=== PATIENT | female | born 1960 | race African-American/Black ===

== ENCOUNTER 2022-02-28 11:30 | Inpatient (IN) | payer SELFPAY ==
[2022-02-28 12:29] LABS: Hemoglobin 13.3 g/dL (12.0-16.0); Mean Corpuscular HGB CONC 33.4 g/dL (32.0-36.0); Mean Corpuscular Hemoglobin 34.2 pg (27.0-31.0); Platelet Count 142 thou/uL (130-400); RBC Distribution Width 13.1 % (11.5-14.5); Red Blood Cell (RBC) Count 3.88 mill/uL (4.20-5.40); White Blood Cell (WBC) Count 28.9 thou/uL (4.8-10.8)
[2022-02-28 12:32] LABS: ALT (SGPT) 55 U/L (8-55); AST (SGOT) 67 U/L (5-34); Albumin 2.4 g/dL (3.5-5.0); Alkaline Phosphatase 130 U/L (40-110); Anion Gap 13 mmol/L (10-20); BUN (Urea Nitrogen) 17 mg/dL (9.8-20.1); Calc. Creatinine Clearance 0 mL/min (70-130); Carbon Dioxide 21 mmol/L (22-29); Chloride 100 mmol/L (98-107); Glucose 127 mg/dL (70-105); Potassium 4.5 mmol/L (3.5-5.1); Protein, Total 7.4 g/dL (6.0-8.3)
[2022-02-28 12:34] LABS: Sodium 129 mmol/L (136-145)
[2022-02-28] MEDS ORDERED: Cefepime 2 GM VIAL ONE (12:40)
[2022-02-28 12:47] LABS: Band 6 % (5-11); Lymphocytes 4 % (21-51); MDiff Complete? YES; Macrocytosis SLIGHT = 6-15 cells (100X) (0-5/hpf); Monocytes 7 % (0-10); Neutrophil 83 % (42-75); Nucleated RBC 1 % (0); Platelet Morphology Comment Appears Adequate; Polychromasia SLIGHT = 2-3 cells (100X) (0-2/hpf); Toxic Granulation SLIGHT
[2022-02-28] MEDS ORDERED: Iopamidol-370 76% 500 ML 1 ML ONE (13:11)
[2022-02-28] MEDS ORDERED: Fentanyl 100 MCG/2 ML VIAL ONE (15:03)
[2022-02-28 15:15] LABS: Bacteria/HPF None Seen HPF (None Seen); Bilirubin Negative (Negative); Blood, Urine Trace (Negative); Clarity Clear (Clear); Glucose, Urine (Dipstick) Normal (Negative); Ketone, Urine Negative (Negative); Leukocyte Negative Leu/uL (Negative); Nitrite Negative (Negative); Protein, Urine (Dipstick) Negative (Neg-Trace); Squamous Epithelial 0-3 HPF (0-3); Urobilinogen 12 mg/dL (Less than 2); WBC/HPF 0-3 HPF (0-3)
[2022-02-28 15:32] LABS: Lactic Acid 3.3 mmol/L (0.5-2.2)
[2022-02-28 15:33] LABS: Specific Gravity, Urine 1.047 (1.002-1.036)
[2022-02-28 15:45] LABS: SARS-CoV-2 NAA Rapid Test Not Detected (NotDetected)
[2022-02-28] MEDS ORDERED: Ondansetron PF 4 MG/2 ML Vial IVP PRN (18:50)
[2022-02-28] MEDS ORDERED: Senokot S 8.6-50 MG TAB PO PRN (18:50)
[2022-02-28] MEDS ORDERED: Ondansetron ODT 4 MG TAB PO PRN (18:50)
[2022-02-28] MEDS ORDERED: Sodium Chloride 0.9% 1,000 ML IV SCH (19:00)
[2022-02-28] MEDS ORDERED: Albuterol Sulfate 2.5 mg/3 ml Neb NEB PRN (19:06)
[2022-02-28] MEDS: Morphine 2 MG/ML VIAL SLOW IVP PRN (19:37)
[2022-02-28] MEDS ORDERED: Vancomycin HCl 1.5 GM in Sodium Chloride 0.9% 250 ML 300 ML IVPB SCH (20:30)
[2022-02-28] MEDS: Sodium Chloride 0.9% 1,000 ML IV SCH (20:41)
[2022-02-28] MEDS ORDERED: tiZANidine HCl 4 MG TAB PO SCH (23:30)
[2022-02-28] MEDS: Vancomycin 1 GM in Premix Bag 1 BAG IVPB SCH (23:39)
[2022-03-01] MEDS: Cefepime 2 GM in Sodium Chloride 0.9% 100 ML IVPB SCH ×2 (01:59→12:53)
[2022-03-01] MEDS: Morphine 2 MG/ML VIAL SLOW IVP PRN ×5 (03:01→23:15)
[2022-03-01 05:31] LABS: ALT (SGPT) 45 U/L (8-55); AST (SGOT) 58 U/L (5-34); Alkaline Phosphatase 110 U/L (40-110); Anion Gap 9 mmol/L (10-20); BUN (Urea Nitrogen) 15 mg/dL (9.8-20.1); Bilirubin, Total 1.7 mg/dL (0.2-1.2); Calc. Creatinine Clearance 98 mL/min (70-130); Calcium 7.3 mg/dL (7.8-10.44); Carbon Dioxide 20 mmol/L (22-29); Chloride 105 mmol/L (98-107); Globulin 4.1 g/dL (2.4-3.5); Glucose 106 mg/dL (70-105); Potassium 4.2 mmol/L (3.5-5.1); Protein, Total 6.1 g/dL (6.0-8.3); Sodium 130 mmol/L (136-145)
[2022-03-01] MEDS: Sodium Chloride 0.9% 1,000 ML IV SCH (08:30)
[2022-03-01] MEDS ORDERED: Vancomycin 1 GM in Premix Bag 1 BAG IVPB SCH (09:00)
[2022-03-01] MEDS: Vancomycin 1 GM in Premix Bag 1 BAG IVPB SCH ×2 (11:19→23:16)
[2022-03-01] MEDS ORDERED: Spironolactone 100 MG TAB PO SCH (17:30)
[2022-03-01] MEDS ORDERED: Furosemide 40 MG/4 ML VIAL SLOW IVP SCH (17:30)
[2022-03-01] MEDS: HYDROcodone/Acetaminophen 5/325 mg Tablet PO PRN ×2 (17:46→23:14)
[2022-03-01 23:37] LABS: Vancomycin, Trough 8.5 ug/mL
[2022-03-02] MEDS: Cefepime 2 GM in Sodium Chloride 0.9% 100 ML IVPB SCH ×2 (01:14→12:57)
[2022-03-02] MEDS: Morphine 2 MG/ML VIAL SLOW IVP PRN ×4 (04:07→21:16)
[2022-03-02] MEDS: HYDROcodone/Acetaminophen 5/325 mg Tablet PO PRN ×5 (04:08→23:06)
[2022-03-02 05:09] LABS: INR-International Normal Ratio 2.3; Prothrombin Time 25.3 sec (12.0-14.7)
[2022-03-02 05:27] LABS: ALT (SGPT) 50 U/L (8-55); AST (SGOT) 65 U/L (5-34); Alkaline Phosphatase 116 U/L (40-110); Anion Gap 11 mmol/L (10-20); BUN (Urea Nitrogen) 15 mg/dL (9.8-20.1); Bilirubin, Total 1.5 mg/dL (0.2-1.2); Calc. Creatinine Clearance 91 mL/min (70-130); Calcium 7.5 mg/dL (7.8-10.44); Carbon Dioxide 18 mmol/L (22-29); Chloride 105 mmol/L (98-107); Globulin 4.7 g/dL (2.4-3.5); Glucose 169 mg/dL (70-105); Protein, Total 6.7 g/dL (6.0-8.3); Sodium 130 mmol/L (136-145)
[2022-03-02] MEDS ORDERED: Vancomycin 1 GM in Premix Bag 1 BAG IVPB SCH (08:00)
[2022-03-02 08:43] LABS: #Eosinphils 0.2 thou/uL (0.0-0.7); #Lymphocytes 2.3 thou/uL (1.20-3.40); #Monocytes 2.5 thou/uL (0.11-0.59); #Neutrophils 22.4 thou/uL (1.40-6.50); %Basophils 0.1 % (0.0-1.0); %Eosinophils 0.8 % (0.0-10.0); %Lymphocytes 8.3 % (21.0-51.0); %Neutrophils 81.9 % (42.0-75.0); Hemoglobin 11.3 g/dL (12.0-16.0); Mean Corpuscular Hemoglobin 34.1 pg (27.0-31.0); Mean Platelet Volume 8.6 fL (7.4-10.4); Platelet Count 135 thou/uL (130-400); Red Blood Cell (RBC) Count 3.32 mill/uL (4.20-5.40); White Blood Cell (WBC) Count 27.3 thou/uL (4.8-10.8)
[2022-03-02] MEDS: Spironolactone 100 MG TAB PO SCH (09:39)
[2022-03-02] MEDS: Furosemide 40 MG/4 ML VIAL SLOW IVP SCH (09:39)
[2022-03-02] MEDS: ceFAZolin (BATCH) 2 GM in Premix Bag 1 BAG IVPB SCH (21:17)
[2022-03-03 04:38] LABS: #Basophils 0.1 thou/uL (0.0-0.2); #Eosinphils 0.2 thou/uL (0.0-0.7); #Lymphocytes 2.3 thou/uL (1.20-3.40); #Monocytes 2.2 thou/uL (0.11-0.59); #Neutrophils 17.9 thou/uL (1.40-6.50); %Basophils 0.3 % (0.0-1.0); %Eosinophils 0.7 % (0.0-10.0); %Lymphocytes 10.2 % (21.0-51.0); %Monocytes 9.7 % (0.0-10.0); %Neutrophils 79.2 % (42.0-75.0); Mean Corpuscular HGB CONC 34.3 g/dL (32.0-36.0); Mean Corpuscular Hemoglobin 35.3 pg (27.0-31.0); Mean Platelet Volume 8.5 fL (7.4-10.4); Platelet Count 123 thou/uL (130-400); RBC Distribution Width 13.1 % (11.5-14.5); Red Blood Cell (RBC) Count 3.12 mill/uL (4.20-5.40); White Blood Cell (WBC) Count 22.6 thou/uL (4.8-10.8)
[2022-03-03] MEDS: Morphine 2 MG/ML VIAL SLOW IVP PRN ×3 (04:44→21:24)
[2022-03-03 05:03] LABS: ALT (SGPT) 51 U/L (8-55); AST (SGOT) 64 U/L (5-34); Albumin 2.1 g/dL (3.5-5.0); Alkaline Phosphatase 108 U/L (40-110); Anion Gap 9 mmol/L (10-20); BUN (Urea Nitrogen) 11 mg/dL (9.8-20.1); Bilirubin, Total 1.4 mg/dL (0.2-1.2); Calc. Creatinine Clearance 99 mL/min (70-130); Calcium 7.7 mg/dL (7.8-10.44); Carbon Dioxide 21 mmol/L (22-29); Chloride 103 mmol/L (98-107); Globulin 4.9 g/dL (2.4-3.5); Glucose 109 mg/dL (70-105); Potassium 4.1 mmol/L (3.5-5.1); Sodium 129 mmol/L (136-145)
[2022-03-03] MEDS: ceFAZolin (BATCH) 2 GM in Premix Bag 1 BAG IVPB SCH ×3 (06:02→21:23)
[2022-03-03] MEDS: Furosemide 40 MG/4 ML VIAL SLOW IVP SCH (09:00)
[2022-03-03] MEDS: Spironolactone 100 MG TAB PO SCH (09:00)
[2022-03-03] MEDS ORDERED: Metoprolol Tartrate 25 MG TAB PO SCH (17:00)
[2022-03-03] MEDS: HYDROcodone/Acetaminophen 5/325 mg Tablet PO PRN (19:33)
[2022-03-04] MEDS: HYDROcodone/Acetaminophen 5/325 mg Tablet PO PRN ×2 (00:40→19:59)
[2022-03-04] MEDS: Morphine 2 MG/ML VIAL SLOW IVP PRN ×4 (04:04→21:17)
[2022-03-04] MEDS: ceFAZolin (BATCH) 2 GM in Premix Bag 1 BAG IVPB SCH ×3 (05:23→22:31)
[2022-03-04] MEDS: Metoprolol Tartrate 25 MG TAB PO SCH ×2 (08:56→21:17)
[2022-03-04] MEDS: Furosemide 40 MG/4 ML VIAL SLOW IVP SCH (08:56)
[2022-03-04] MEDS: Spironolactone 100 MG TAB PO SCH (08:56)
[2022-03-04 11:03] LABS: #Basophils 0.1 thou/uL (0.0-0.2); #Eosinphils 0.2 thou/uL (0.0-0.7); #Monocytes 1.5 thou/uL (0.11-0.59); #Neutrophils 15.9 thou/uL (1.40-6.50); %Basophils 0.4 % (0.0-1.0); %Lymphocytes 10.3 % (21.0-51.0); %Monocytes 7.4 % (0.0-10.0); %Neutrophils 80.9 % (42.0-75.0); Hemoglobin 11.5 g/dL (12.0-16.0); Mean Corpuscular HGB CONC 32.8 g/dL (32.0-36.0); Mean Corpuscular Hemoglobin 34.8 pg (27.0-31.0); Mean Platelet Volume 8.5 fL (7.4-10.4); Platelet Count 183 thou/uL (130-400); RBC Distribution Width 13.7 % (11.5-14.5); Red Blood Cell (RBC) Count 3.29 mill/uL (4.20-5.40); White Blood Cell (WBC) Count 19.7 thou/uL (4.8-10.8)
[2022-03-04 11:11] LABS: INR-International Normal Ratio 1.5; Prothrombin Time 17.8 sec (12.0-14.7)
[2022-03-04 11:23] LABS: ALT (SGPT) 47 U/L (8-55); AST (SGOT) 81 U/L (5-34); Albumin 2.2 g/dL (3.5-5.0); Alkaline Phosphatase 119 U/L (40-110); Anion Gap 11 mmol/L (10-20); BUN (Urea Nitrogen) 12 mg/dL (9.8-20.1); Bilirubin, Total 1.5 mg/dL (0.2-1.2); Calc. Creatinine Clearance 78 mL/min (70-130); Calcium 8.1 mg/dL (7.8-10.44); Carbon Dioxide 19 mmol/L (22-29); Chloride 101 mmol/L (98-107); Globulin 5.9 g/dL (2.4-3.5); Glucose 143 mg/dL (70-105); Potassium 4.2 mmol/L (3.5-5.1); Protein, Total 8.1 g/dL (6.0-8.3); Sodium 127 mmol/L (136-145)
[2022-03-04] MEDS ORDERED: Sodium Bicarbonate 2.5 MEQ/5 ML VIAL ONE (13:53)
[2022-03-04] MEDS ORDERED: Lidocaine 1% PF 5 ML VIAL ONE (13:53)
[2022-03-04 15:41] LABS: RBC Count-Automated (BF) 19 /cu.mm; WBC/Nucleated-Auto (BF) 517 /cu.mm
[2022-03-04 15:42] LABS: Pleural Fluid, LDH 41 U/L (Not Available); Pleural Fluid, Protein Less than 1.0 g/dL
[2022-03-04 16:13] LABS: BF Color Yellow; Body Fluid Source Ascites Body Fluid; Clarity Clear (Clear); Tube # EDTA
[2022-03-04 16:14] LABS: BF Segmented Neutrophils 37 %; Cell Count Non Hematic 41 %; Lymphocytes 22 %
[2022-03-04 23:36] LABS: HCV log10 5.722 (.); Hep C PCR-Quant 527000 IU/mL (.)
[2022-03-05] MEDS: Morphine 2 MG/ML VIAL SLOW IVP PRN ×2 (02:27→22:01)
[2022-03-05 04:15] LABS: #Eosinphils 0.2 thou/uL (0.0-0.7); #Monocytes 1.7 thou/uL (0.11-0.59); #Neutrophils 12.2 thou/uL (1.40-6.50); %Basophils 0.2 % (0.0-1.0); %Eosinophils 1.1 % (0.0-10.0); %Lymphocytes 12.3 % (21.0-51.0); %Monocytes 10.8 % (0.0-10.0); %Neutrophils 75.6 % (42.0-75.0); Hemoglobin 10.1 g/dL (12.0-16.0); Mean Corpuscular HGB CONC 34.5 g/dL (32.0-36.0); Mean Corpuscular Hemoglobin 35.8 pg (27.0-31.0); Platelet Count 137 thou/uL (130-400); RBC Distribution Width 13.9 % (11.5-14.5); Red Blood Cell (RBC) Count 2.84 mill/uL (4.20-5.40); White Blood Cell (WBC) Count 16.1 thou/uL (4.8-10.8)
[2022-03-05 04:37] LABS: ALT (SGPT) 38 U/L (8-55); AST (SGOT) 73 U/L (5-34); Alkaline Phosphatase 117 U/L (40-110); Anion Gap 7 mmol/L (10-20); BUN (Urea Nitrogen) 13 mg/dL (9.8-20.1); Bilirubin, Total 1.1 mg/dL (0.2-1.2); Calc. Creatinine Clearance 85 mL/min (70-130); Calcium 7.9 mg/dL (7.8-10.44); Carbon Dioxide 24 mmol/L (22-29); Chloride 104 mmol/L (98-107); Globulin 5.2 g/dL (2.4-3.5); Glucose 108 mg/dL (70-105); Iron 24 ug/dL (50-170); Iron Binding Capacity, Total 193 mcg/dL (265-497); Potassium 4.3 mmol/L (3.5-5.1); Protein, Total 7.2 g/dL (6.0-8.3); Sodium 131 mmol/L (136-145)
[2022-03-05 04:53] LABS: Ferritin 272.61 ng/mL (10-291)
[2022-03-05 05:08] LABS: HBCM Index 0.12 S/CO (0-0.79); HBSAg Index 0.22 S/CO (0-0.99); Hep A IgM AB Non-Reactive (NonReactive); Hep A IgM S/CO 0.31 S/CO (0-0.79); Hep B Surf Ag Non-Reactive S/CO (NonReactive); Hepatitis B Core IgM Abs Non-Reactive (NonReactive)
[2022-03-05] MEDS: HYDROcodone/Acetaminophen 5/325 mg Tablet PO PRN ×4 (05:56→19:44)
[2022-03-05] MEDS: ceFAZolin (BATCH) 2 GM in Premix Bag 1 BAG IVPB SCH ×3 (06:00→22:00)
[2022-03-05 06:25] LABS: Hep C IgG Ab Reflex HepC Qnt (NonReactive)
[2022-03-05 06:27] LABS: Hep C Index 11.77 S/CO (0-0.79)
[2022-03-05] MEDS: Spironolactone 100 MG TAB PO SCH (09:53)
[2022-03-05] MEDS: Metoprolol Tartrate 25 MG TAB PO SCH ×2 (09:53→19:44)
[2022-03-05] MEDS: Furosemide 40 MG/4 ML VIAL SLOW IVP SCH (09:53)
[2022-03-06] MEDS: HYDROcodone/Acetaminophen 5/325 mg Tablet PO PRN ×3 (03:29→22:10)
[2022-03-06] MEDS ORDERED: fentaNYL Citrate/PF 100 MCG/2 ML SYRINGE ONE (10:24)
[2022-03-06] MEDS ORDERED: PHENYLEPHRINE-NS 100 MCG/ML 10 ML SYRINGE ONE ×2 (10:26→11:00)
[2022-03-06] MEDS ORDERED: Pantoprazole 40 MG VIAL IVP SCH (11:46)
[2022-03-06] MEDS: Spironolactone 100 MG TAB PO SCH (11:51)
[2022-03-06] MEDS: Furosemide 40 MG TAB PO SCH (11:52)
[2022-03-06] MEDS: Metoprolol Tartrate 25 MG TAB PO SCH ×2 (11:52→20:10)
[2022-03-06] MEDS: Morphine 2 MG/ML VIAL SLOW IVP PRN ×2 (11:52→19:15)
[2022-03-06] MEDS: ceFAZolin (BATCH) 2 GM in Premix Bag 1 BAG IVPB SCH ×3 (11:53→20:09)
[2022-03-06] MEDS ORDERED: Magnevist 469MG/ML 20 ML VIAL ONE (14:31)
[2022-03-06] MEDS: Pantoprazole 40 MG VIAL IVP SCH (20:11)
[2022-03-07] MEDS: Morphine 2 MG/ML VIAL SLOW IVP PRN ×3 (01:43→15:17)
[2022-03-07] MEDS: HYDROcodone/Acetaminophen 5/325 mg Tablet PO PRN ×2 (05:26→20:43)
[2022-03-07] MEDS: ceFAZolin (BATCH) 2 GM in Premix Bag 1 BAG IVPB SCH ×3 (05:27→20:49)
[2022-03-07] MEDS: Furosemide 40 MG TAB PO SCH (09:28)
[2022-03-07] MEDS: Metoprolol Tartrate 25 MG TAB PO SCH ×2 (09:29→21:50)
[2022-03-07] MEDS: Spironolactone 100 MG TAB PO SCH (09:29)
[2022-03-07] MEDS: Pantoprazole 40 MG VIAL IVP SCH ×2 (09:29→20:43)
[2022-03-07 11:53] LABS: SARS-CoV-2 PCR by NAA Not Detected (NotDetected)
[2022-03-08] MEDS: ceFAZolin (BATCH) 2 GM in Premix Bag 1 BAG IVPB SCH ×3 (04:45→20:44)
[2022-03-08 04:49] LABS: #Basophils 0.1 thou/uL (0.0-0.2); #Eosinphils 0.2 thou/uL (0.0-0.7); #Lymphocytes 1.3 thou/uL (1.20-3.40); #Monocytes 1.1 thou/uL (0.11-0.59); #Neutrophils 5.6 thou/uL (1.40-6.50); %Eosinophils 1.9 % (0.0-10.0); %Lymphocytes 15.5 % (21.0-51.0); %Monocytes 13.8 % (0.0-10.0); %Neutrophils 67.8 % (42.0-75.0); Hemoglobin 9.3 g/dL (12.0-16.0); Mean Corpuscular HGB CONC 32.8 g/dL (32.0-36.0); Mean Corpuscular Hemoglobin 34.7 pg (27.0-31.0); Mean Platelet Volume 8.2 fL (7.4-10.4); Platelet Count 140 thou/uL (130-400); RBC Distribution Width 14.5 % (11.5-14.5); Red Blood Cell (RBC) Count 2.67 mill/uL (4.20-5.40); White Blood Cell (WBC) Count 8.2 thou/uL (4.8-10.8)
[2022-03-08 05:03] LABS: Anion Gap 8 mmol/L (10-20); BUN (Urea Nitrogen) 8 mg/dL (9.8-20.1); Calc. Creatinine Clearance 85 mL/min (70-130); Calcium 7.7 mg/dL (7.8-10.44); Carbon Dioxide 22 mmol/L (22-29); Chloride 103 mmol/L (98-107); Glucose 124 mg/dL (70-105); Sodium 129 mmol/L (136-145)
[2022-03-08] MEDS: HYDROcodone/Acetaminophen 5/325 mg Tablet PO PRN ×2 (05:30→20:50)
[2022-03-08] MEDS: Furosemide 40 MG TAB PO SCH (08:53)
[2022-03-08] MEDS: Spironolactone 100 MG TAB PO SCH (08:53)
[2022-03-08] MEDS: Pantoprazole 40 MG VIAL IVP SCH ×2 (08:53→20:44)
[2022-03-08 16:38] LABS: ANA Symphony (Qualitative) Equivocal: See Note (Negative); ANA Symphony (Quantitative) 0.9 Ratio (< 0.7 Negative); EliA Vaculitis New Method **** NEW METHOD ****; Mitochondrial Ab 2.2 U/mL (<4 Negative)
[2022-03-09] MEDS: ceFAZolin (BATCH) 2 GM in Premix Bag 1 BAG IVPB SCH ×3 (04:48→19:52)
[2022-03-09] MEDS: HYDROcodone/Acetaminophen 5/325 mg Tablet PO PRN ×3 (05:01→19:51)
[2022-03-09] MEDS: Spironolactone 100 MG TAB PO SCH (08:32)
[2022-03-09] MEDS: Furosemide 40 MG TAB PO SCH (08:32)
[2022-03-09] MEDS: Pantoprazole 40 MG VIAL IVP SCH ×2 (08:38→20:33)
[2022-03-09] MEDS ORDERED: Temazepam 15 MG CAP PO PRN (11:32)
[2022-03-09 14:09] LABS: Smooth Muscle Total ABS 24 Units (0-19)
[2022-03-10] MEDS: ceFAZolin (BATCH) 2 GM in Premix Bag 1 BAG IVPB SCH ×3 (04:11→20:17)
[2022-03-10] MEDS: HYDROcodone/Acetaminophen 5/325 mg Tablet PO PRN ×3 (04:20→20:14)
[2022-03-10 04:48] LABS: #Eosinphils 0.2 thou/uL (0.0-0.7); #Lymphocytes 1.5 thou/uL (1.20-3.40); #Monocytes 0.8 thou/uL (0.11-0.59); #Neutrophils 4.4 thou/uL (1.40-6.50); %Basophils 0.7 % (0.0-1.0); %Eosinophils 2.7 % (0.0-10.0); %Lymphocytes 21.4 % (21.0-51.0); %Monocytes 11.4 % (0.0-10.0); %Neutrophils 63.9 % (42.0-75.0); Mean Corpuscular HGB CONC 32.9 g/dL (32.0-36.0); Mean Corpuscular Hemoglobin 34.9 pg (27.0-31.0); Mean Platelet Volume 8.2 fL (7.4-10.4); Platelet Count 132 thou/uL (130-400); RBC Distribution Width 14.3 % (11.5-14.5); Red Blood Cell (RBC) Count 2.57 mill/uL (4.20-5.40); White Blood Cell (WBC) Count 6.9 thou/uL (4.8-10.8)
[2022-03-10 05:18] LABS: Anion Gap 9 mmol/L (10-20); BUN (Urea Nitrogen) 8 mg/dL (9.8-20.1); Calc. Creatinine Clearance 85 mL/min (70-130); Calcium 7.8 mg/dL (7.8-10.44); Carbon Dioxide 20 mmol/L (22-29); Chloride 106 mmol/L (98-107); Glucose 80 mg/dL (70-105); Potassium 4.3 mmol/L (3.5-5.1); Sodium 131 mmol/L (136-145)
[2022-03-10] MEDS: Spironolactone 100 MG TAB PO SCH (07:57)
[2022-03-10] MEDS: Furosemide 40 MG TAB PO SCH (07:57)
[2022-03-10] MEDS: Pantoprazole 40 MG VIAL IVP SCH ×2 (09:52→20:18)
[2022-03-11] MEDS: ceFAZolin (BATCH) 2 GM in Premix Bag 1 BAG IVPB SCH ×2 (03:55→15:06)
[2022-03-11] MEDS: HYDROcodone/Acetaminophen 5/325 mg Tablet PO PRN (04:03)
[2022-03-11] MEDS: Spironolactone 100 MG TAB PO SCH (09:47)
[2022-03-11] MEDS: Pantoprazole 40 MG VIAL IVP SCH (09:47)
[2022-03-11] MEDS: Furosemide 40 MG TAB PO SCH (09:47)
[2022-03-11 14:18] LABS: Alpha-1-Antitrypsin 247 mg/dL (101-187)
[2022-03-11 15:09] VITALS: BMI 24.2
[2022-03-11 16:12] VITALS: BP 116/68; TEMP 98.7
== END 2022-03-11 18:10 | disposition home or self-care (01) | DRG 432 ==
LOC: ERS 11:30 → 2NO 17:45
PROVIDERS: ADMIT Internal Medicine; ATTEND Internal Medicine
PROC: 3E03329 Introduction of Other Anti-infective into Peripheral Vein, Percutaneous Approach (ICD-10-PCS; principal; 2022-02-28)
PROC: 0W9G3ZZ Drainage of Peritoneal Cavity, Percutaneous Approach (ICD-10-PCS; 2022-03-04)
PROC: 06L38CZ Occlusion of Esophageal Vein with Extraluminal Device, Via Natural or Artificial Opening Endoscopic (ICD-10-PCS; 2022-03-06)
PROC: 0DB98ZX Excision of Duodenum, Via Natural or Artificial Opening Endoscopic, Diagnostic (ICD-10-PCS; 2022-03-06)
PROC: 0DB78ZX Excision of Stomach, Pylorus, Via Natural or Artificial Opening Endoscopic, Diagnostic (ICD-10-PCS; 2022-03-06)
PROC: 02HV33Z Insertion of Infusion Device into Superior Vena Cava, Percutaneous Approach (ICD-10-PCS; 2022-03-07)
PROC: B548ZZA Ultrasonography of Superior Vena Cava, Guidance (ICD-10-PCS; 2022-03-07)
DX: K70.31 Alcoholic cirrhosis of liver with ascites (principal); A41.01 Sepsis due to Methicillin susceptible Staphylococcus aureus; R65.20 Severe sepsis without septic shock; E87.2 Acidosis; E87.1 Hypo-osmolality and hyponatremia; N39.0 Urinary tract infection, site not specified; K76.6 Portal hypertension; I42.1 Obstructive hypertrophic cardiomyopathy; D68.9 Coagulation defect, unspecified; I85.10 Secondary esophageal varices without bleeding; Z20.822 Contact with and (suspected) exposure to COVID-19; I10 Essential (primary) hypertension; B18.2 Chronic viral hepatitis C; F41.9 Anxiety disorder, unspecified; F32.A Depression, unspecified; F17.210 Nicotine dependence, cigarettes, uncomplicated; F10.20 Alcohol dependence, uncomplicated; K52.9 Noninfective gastroenteritis and colitis, unspecified; D63.8 Anemia in other chronic diseases classified elsewhere; D50.9 Iron deficiency anemia, unspecified; K31.89 Other diseases of stomach and duodenum; F12.10 Cannabis abuse, uncomplicated; Z79.82 Long term (current) use of aspirin; Z79.52 Long term (current) use of systemic steroids; Z79.899 Other long term (current) drug therapy; G47.00 Insomnia, unspecified
CPT/HCPCS: 36415; 36569; 49083; 71045; 71275; 72157; 74177; 80048; 80053; 80074; 80202; 81003; 81015; 82042; 82103; 82104; 82105; 82274; 82390; 82728; 83516; 83540; 83550; 83605; 83615; 83880; 84157; 84484; 85025; 85060; 85610; 86015; 86038; 86140; 86225; 87040; 87070; 87077; 87086; 87149; 87186; 87205; 87522; 88112; 88305; 88341; 88342; 89051; 93005; 93306; 96365; 96367; 96375; A9579; C1751; C9113; J0690; J0692; J1940; J1956; J2270; J3010; J3370; J3490; J7050; Q9967; U0003; U0005

== ENCOUNTER 2022-03-15 20:24 | Emergency (ER) | payer SELFPAY ==
[2022-03-15] MEDS ORDERED: cefTRIAXone\\ROCEPHIN 2 GM VIAL ONE (21:45)
== END 2022-03-15 22:27 | disposition home or self-care (01) ==
LOC: ERS 20:24
DX: T82.594A Other mechanical complication of infusion catheter, initial encounter (principal); I10 Essential (primary) hypertension; J44.9 Chronic obstructive pulmonary disease, unspecified; Z87.891 Personal history of nicotine dependence
CPT/HCPCS: 96374; J0696

== ENCOUNTER 2022-04-19 10:06 | Inpatient (IN) | payer SELFPAY ==
[~2022-04-19 10:06] MED LIST: Lorazepam 1 MG TAB PO PRN
[2022-04-19] MEDS ORDERED: Ondansetron PF 4 MG/2 ML Vial ONE (10:27)
[2022-04-19 11:04] LABS: Hemoglobin 5.3 g/dL (12.0-16.0); Mean Corpuscular HGB CONC 28.9 g/dL (32.0-36.0); Mean Corpuscular Hemoglobin 28.9 pg (27.0-31.0); Mean Platelet Volume 9.4 fL (7.4-10.4); Platelet Count 217 thou/uL (130-400); RBC Distribution Width 17.2 % (11.5-14.5); Red Blood Cell (RBC) Count 1.81 mill/uL (4.20-5.40)
[2022-04-19 11:21] LABS: ALT (SGPT) 29 U/L (8-55); AST (SGOT) 51 U/L (5-34); Alkaline Phosphatase 89 U/L (40-110); Anion Gap 22 mmol/L (10-20); BUN (Urea Nitrogen) 40 mg/dL (9.8-20.1); Calc. Creatinine Clearance 0 mL/min (70-130); Calcium 7.6 mg/dL (7.8-10.44); Chloride 115 mmol/L (98-107); Globulin 4.4 g/dL (2.4-3.5); Glucose 119 mg/dL (80-115); Magnesium 1.9 mg/dL (1.6-2.6); Potassium 5.1 mmol/L (3.5-5.1); Protein, Total 6.4 g/dL (5.8-8.1); Sodium 141 mmol/L (136-145)
[2022-04-19] MEDS ORDERED: Iopamidol-370 76% 500 ML 1 ML ONE ×2 (11:23→11:25)
[2022-04-19 11:24] LABS: Band 3 % (5-11); Burr Cells SLIGHT = 2-5 cells (100X) (0-1/hpf); Eosinophils 1 % (0-10); Hypochromia SLIGHT = 6-15 cells (100X) (0-5/hpf); Lymphocytes 13 % (21-51); MDiff Complete? YES; Macrocytosis SLIGHT = 6-15 cells (100X) (0-5/hpf); Monocytes 4 % (0-10); Neutrophil 78 % (42-75); Ovalocytes SLIGHT = 2-5 cells (100X) (0-1/hpf); Platelet Morphology Comment Appears Adequate; Polychromasia SLIGHT = 2-3 cells (100X) (0-2/hpf); Reactive Lymphocytes 1 % (0-10)
[2022-04-19 11:34] LABS: Bacteria/HPF None Seen HPF (None Seen); Bilirubin Negative (Negative); Blood, Urine Trace (Negative); Clarity Clear (Clear); Glucose, Urine (Dipstick) Normal (Negative); Ketone, Urine 20 mg/dL (Negative); Leukocyte Negative Leu/uL (Negative); Nitrite Negative (Negative); Protein, Urine (Dipstick) Negative (Neg-Trace); RBC/HPF 0-3 HPF (0-3); Specific Gravity, Urine 1.023 (1.002-1.036); Squamous Epithelial 0-3 HPF (0-3); Urobilinogen Normal mg/dL (Less than 2); WBC/HPF None Seen HPF (0-3)
[2022-04-19 11:37] LABS: Carbon Dioxide 9 mmol/L (23-31)
[2022-04-19 11:40] LABS: Amphetamine Not Detected (NotDetected); Barbiturates Screen Not Detected (NotDetected); Benzodiazepine Screen Not Detected (NotDetected); Cocaine Metabolite Screen Not Detected (NotDetected); Methadone Not Detected (NotDetected); Methamphetamine Not Detected (NotDetected); Opiate Screen Not Detected (NotDetected); Oxycodone Screen Not Detected (NotDetected); Phencyclidine (PCP) Not Detected (NotDetected); THC/Cannabinoid Screen Detected (NotDetected); Tricyclic Screen Detected (NotDetected)
[2022-04-19 11:44] LABS: CKMB 6.4 ng/mL (0-6.6)
[2022-04-19 11:52] LABS: INR-International Normal Ratio 1.9; PTT 38.8 sec (22.9-36.1); Prothrombin Time 21.7 sec (12.0-14.7)
[2022-04-19 11:53] LABS: D-Dimer Test 3.8 *mcg/mL (0.27-0.43)
[2022-04-19] MEDS ORDERED: Fentanyl 100 MCG/2 ML VIAL ONE (12:06)
[2022-04-19 13:18] LABS: Ferritin 31.67 ng/mL (10-291)
[2022-04-19 13:25] LABS: Iron 44 ug/dL (50-170); Iron Binding Capacity, Total 350 mcg/dL (265-497)
[2022-04-19] MEDS ORDERED: Pantoprazole 80 MG in Sodium Chloride 0.9% 100 ML IVPB SCH (13:30)
[2022-04-19] MEDS ORDERED: Octreotide Acetate 50 MCG/ML AMP SLOW IVP SCH (13:30)
[2022-04-19] MEDS ORDERED: Cefepime 2 GM VIAL ONE (13:45)
[2022-04-19] MEDS ORDERED: Pantoprazole 40 MG VIAL ONE (13:45)
[2022-04-19] MEDS ORDERED: Lorazepam 2 MG/ML VIAL ONE (14:20)
[2022-04-19] MEDS ORDERED: Lactated Ringer's 1,000 ML IV SCH (14:53)
[2022-04-19] MEDS ORDERED: Ondansetron PF 4 MG/2 ML Vial IVP PRN (14:53)
[2022-04-19] MEDS ORDERED: Bisacodyl 5 MG TAB PO PRN (14:53)
[2022-04-19] MEDS: Octreotide Acetate 1,250 MCG in Sodium Chloride 0.9% 250 ML 250 ML IVPB SCH (15:25)
[2022-04-19] MEDS ORDERED: Vancomycin 1 GM in Premix Bag 1 BAG IVPB SCH (15:45)
[2022-04-19] MEDS ORDERED: Electrolyte Replacement Protocol 1 EACH FS SCH (16:00)
[2022-04-19] MEDS ORDERED: Multivitamins, Adult 10 ML, Folic Acid 1 MG, Thiamine HCl 100 MG in Dextrose 5 %-0.45 %... IV SCH (16:00)
[2022-04-19 16:25] LABS: Phosphorus 4.5 mg/dL (2.3-4.7)
[2022-04-19] MEDS: Nicotine 14 MG PATCH TD SCH (18:30)
[2022-04-19] MEDS: Sodium Bicarbonate 150 MEQ in Dextrose 5% in Water 1,000 ML IV SCH (18:33)
[2022-04-19] MEDS ORDERED: Ondansetron ODT 4 MG TAB PO PRN (20:45)
[2022-04-19] MEDS ORDERED: Electrolyte Replacement Protocol 1 EACH FS PRN (20:45)
[2022-04-19] MEDS ORDERED: Lorazepam 2 MG/ML VIAL IM PRN (20:45)
[2022-04-19] MEDS ORDERED: Magnesium 2 GM/50 ML(in water) 2 GM in Premix Bag 1 BAG IVPB SCH (21:15)
[2022-04-19] MEDS: Lorazepam 1 MG TAB PO SCH ×2 (21:29→23:22)
[2022-04-19] MEDS: Thiamine HCl 200 MG/2 ML VIAL SLOW IVP SCH (21:44)
[2022-04-19] MEDS: Pantoprazole 40 MG VIAL IVP SCH (21:47)
[2022-04-19] MEDS: Vancomycin 1 GM in Premix Bag 1 BAG IVPB SCH (21:48)
[2022-04-19 23:49] LABS: #Eosinphils 0.1 thou/uL (0.0-0.7); #Lymphocytes 2.8 thou/uL (1.20-3.40); #Monocytes 1.9 thou/uL (0.11-0.59); #Neutrophils 11.8 thou/uL (1.40-6.50); %Basophils 0.3 % (0.0-1.0); %Eosinophils 0.4 % (0.0-10.0); %Lymphocytes 16.8 % (21.0-51.0); %Monocytes 11.6 % (0.0-10.0); %Neutrophils 70.9 % (42.0-75.0); Hemoglobin 9.6 g/dL (12.0-16.0); Mean Corpuscular HGB CONC 33.5 g/dL (32.0-36.0); Mean Corpuscular Volume 89.7 fL (78.0-98.0); Mean Platelet Volume 9.1 fL (7.4-10.4); Platelet Count 125 thou/uL (130-400); RBC Distribution Width 14.7 % (11.5-14.5); Red Blood Cell (RBC) Count 3.19 mill/uL (4.20-5.40); White Blood Cell (WBC) Count 16.7 thou/uL (4.8-10.8)
[2022-04-20 00:07] LABS: Lactic Acid 3.8 mmol/L (0.5-2.2)
[2022-04-20 00:17] LABS: Anion Gap 15 mmol/L (10-20); BUN (Urea Nitrogen) 39 mg/dL (9.8-20.1); Calc. Creatinine Clearance 58 mL/min (70-130); Carbon Dioxide 15 mmol/L (23-31); Chloride 117 mmol/L (98-107); Glucose 110 mg/dL (80-115); Potassium 5.5 mmol/L (3.5-5.1); Sodium 141 mmol/L (136-145)
[2022-04-20] MEDS: Sodium Bicarbonate 150 MEQ in Dextrose 5% in Water 1,000 ML IV SCH ×4 (01:02→20:49)
[2022-04-20 01:15] LABS: SARS-CoV-2 NAA Rapid Test Not Detected (NotDetected)
[2022-04-20] MEDS: Cefepime 2 GM in Sodium Chloride 0.9% 100 ML IVPB SCH ×2 (01:33→14:35)
[2022-04-20 04:35] LABS: #Eosinphils 0.1 thou/uL (0.0-0.7); #Monocytes 1.7 thou/uL (0.11-0.59); #Neutrophils 10.1 thou/uL (1.40-6.50); %Basophils 0.3 % (0.0-1.0); %Eosinophils 0.6 % (0.0-10.0); %Lymphocytes 20.2 % (21.0-51.0); %Monocytes 11.5 % (0.0-10.0); %Neutrophils 67.3 % (42.0-75.0); Hemoglobin 8.9 g/dL (12.0-16.0); Mean Corpuscular HGB CONC 34.5 g/dL (32.0-36.0); Mean Corpuscular Hemoglobin 30.7 pg (27.0-31.0); Mean Corpuscular Volume 89.1 fL (78.0-98.0); Mean Platelet Volume 9.3 fL (7.4-10.4); Platelet Count 105 thou/uL (130-400); RBC Distribution Width 15.2 % (11.5-14.5); Red Blood Cell (RBC) Count 2.89 mill/uL (4.20-5.40); White Blood Cell (WBC) Count 14.9 thou/uL (4.8-10.8)
[2022-04-20 05:02] LABS: ALT (SGPT) 34 U/L (8-55); AST (SGOT) 72 U/L (5-34); Alkaline Phosphatase 77 U/L (40-110); Anion Gap 9 mmol/L (10-20); BUN (Urea Nitrogen) 40 mg/dL (9.8-20.1); Bilirubin, Total 1.4 mg/dL (0.2-1.2); Calc. Creatinine Clearance 60 mL/min (70-130); Calcium 7.4 mg/dL (7.8-10.44); Carbon Dioxide 21 mmol/L (23-31); Chloride 113 mmol/L (98-107); Globulin 3.9 g/dL (2.4-3.5); Glucose 124 mg/dL (80-115); Magnesium 2.2 mg/dL (1.6-2.6); Phosphorus 3.5 mg/dL (2.3-4.7); Potassium 4.3 mmol/L (3.5-5.1); Protein, Total 5.9 g/dL (5.8-8.1); Sodium 139 mmol/L (136-145)
[2022-04-20] MEDS: Lorazepam 1 MG TAB PO SCH ×4 (05:37→23:10)
[2022-04-20] MEDS: Pantoprazole 40 MG VIAL IVP SCH ×2 (09:32→20:43)
[2022-04-20] MEDS: Folic Acid 1 MG TAB PO SCH (09:32)
[2022-04-20] MEDS: Multivit, Therapeutic 1 TAB PO SCH (09:32)
[2022-04-20] MEDS ORDERED: Electrolyte Replacement Protocol FS PRN (10:15)
[2022-04-20] MEDS: Fentanyl 100 MCG/2 ML VIAL SLOW IVP PRN ×4 (10:49→21:59)
[2022-04-20] MEDS ORDERED: Vancomycin 1 GM in Premix Bag 1 BAG IVPB SCH (14:00)
[2022-04-20] MEDS: Nicotine 14 MG PATCH TD SCH (14:35)
[2022-04-20] MEDS: Lorazepam 2 MG/ML VIAL SLOW IVP PRN (16:02)
[2022-04-20] MEDS: Thiamine HCl 200 MG/2 ML VIAL SLOW IVP SCH (20:42)
[2022-04-20] MEDS: Vancomycin 1 GM in Premix Bag 1 BAG IVPB SCH (20:43)
[2022-04-20] MEDS ORDERED: Lorazepam 1 MG TAB PO PRN (20:45)
[2022-04-20] MEDS: Octreotide Acetate 1,250 MCG in Sodium Chloride 0.9% 250 ML 250 ML IVPB SCH (20:48)
[2022-04-21] MEDS: Cefepime 2 GM in Sodium Chloride 0.9% 100 ML IVPB SCH ×2 (01:27→14:59)
[2022-04-21] MEDS: Fentanyl 100 MCG/2 ML VIAL SLOW IVP PRN (01:28)
[2022-04-21] MEDS ORDERED: Morphine 4 MG/ML VIAL SLOW IVP SCH (02:45)
[2022-04-21] MEDS: Morphine 4 MG/ML VIAL SLOW IVP PRN ×4 (04:32→23:44)
[2022-04-21 04:34] LABS: ALT (SGPT) 34 U/L (8-55); AST (SGOT) 69 U/L (5-34); Albumin 1.9 g/dL (3.4-4.8); Alkaline Phosphatase 78 U/L (40-110); Anion Gap 9 mmol/L (10-20); BUN (Urea Nitrogen) 28 mg/dL (9.8-20.1); Bilirubin, Total 1.2 mg/dL (0.2-1.2); Calc. Creatinine Clearance 72 mL/min (70-130); Calcium 7.3 mg/dL (7.8-10.44); Carbon Dioxide 24 mmol/L (23-31); Chloride 111 mmol/L (98-107); Globulin 3.7 g/dL (2.4-3.5); Glucose 112 mg/dL (80-115); Magnesium 2.2 mg/dL (1.6-2.6); Phosphorus 3.3 mg/dL (2.3-4.7); Potassium 3.6 mmol/L (3.5-5.1); Protein, Total 5.6 g/dL (5.8-8.1); Sodium 140 mmol/L (136-145)
[2022-04-21 04:41] LABS: #Basophils 0.1 thou/uL (0.0-0.2); #Eosinphils 0.1 thou/uL (0.0-0.7); #Lymphocytes 1.1 thou/uL (1.20-3.40); #Monocytes 0.8 thou/uL (0.11-0.59); #Neutrophils 4.4 thou/uL (1.40-6.50); %Basophils 1.1 % (0.0-1.0); %Eosinophils 1.8 % (0.0-10.0); %Lymphocytes 17.4 % (21.0-51.0); %Monocytes 12.7 % (0.0-10.0); Anisocytosis SLIGHT = 6-15 cells (100X) (0-5/hpf); Burr Cells SLIGHT = 2-5 cells (100X) (0-1/hpf); Hemoglobin 7.8 g/dL (12.0-16.0); MDiff Complete? YES; Mean Corpuscular HGB CONC 33.5 g/dL (32.0-36.0); Mean Corpuscular Hemoglobin 29.9 pg (27.0-31.0); Mean Corpuscular Volume 89.4 fL (78.0-98.0); Mean Platelet Volume 9.3 fL (7.4-10.4); Platelet Count 78 thou/uL (130-400); Platelet Morphology Comment Appears Decreased; RBC Distribution Width 15.3 % (11.5-14.5); Red Blood Cell (RBC) Count 2.61 mill/uL (4.20-5.40); White Blood Cell (WBC) Count 6.5 thou/uL (4.8-10.8)
[2022-04-21 04:45] LABS: Schistocytes SLIGHT = 2-5 cells (100X) (0-1/hpf)
[2022-04-21] MEDS: Lorazepam 0.5 MG TAB PO SCH ×3 (06:40→18:18)
[2022-04-21] MEDS: Pantoprazole 40 MG VIAL IVP SCH ×2 (09:35→20:14)
[2022-04-21 11:29] LABS: RBC Count-Automated (BF) 157 /cu.mm; WBC/Nucleated-Auto (BF) 214 /cu.mm
[2022-04-21] MEDS: Sodium Bicarbonate 150 MEQ in Dextrose 5% in Water 1,000 ML IV SCH (11:56)
[2022-04-21] MEDS: Folic Acid 1 MG TAB PO SCH (11:57)
[2022-04-21] MEDS: Multivit, Therapeutic 1 TAB PO SCH (11:57)
[2022-04-21 13:36] LABS: Body Fluid Source Peritoneal Fluid
[2022-04-21 13:37] LABS: BF Color Colorless; Clarity Hazy (Clear); Tube # EDTA
[2022-04-21 13:39] LABS: BF Segmented Neutrophils 9 %; Cell Count Non Hematic 44 %; Lymphocytes 47 %
[2022-04-21] MEDS: Nicotine 14 MG PATCH TD SCH (14:59)
[2022-04-21] MEDS: Thiamine HCl 200 MG/2 ML VIAL SLOW IVP SCH (20:14)
[2022-04-21 20:34] LABS: Vancomycin, Trough 6.3 ug/mL
[2022-04-21] MEDS ORDERED: Lorazepam 1 MG TAB PO PRN (20:45)
[2022-04-21] MEDS: Vancomycin 1 GM in Premix Bag 1 BAG IVPB SCH (21:17)
[2022-04-21] MEDS: Octreotide Acetate 1,250 MCG in Sodium Chloride 0.9% 250 ML 250 ML IVPB SCH (23:04)
[2022-04-22] MEDS: Lorazepam 0.5 MG TAB PO SCH (00:23)
[2022-04-22] MEDS: Cefepime 2 GM in Sodium Chloride 0.9% 100 ML IVPB SCH ×2 (02:22→16:06)
[2022-04-22] MEDS: Sodium Bicarbonate 150 MEQ in Dextrose 5% in Water 1,000 ML IV SCH ×2 (02:23→19:43)
[2022-04-22 04:11] LABS: #Basophils 0.1 thou/uL (0.0-0.2); #Eosinphils 0.1 thou/uL (0.0-0.7); #Lymphocytes 1.2 thou/uL (1.20-3.40); #Neutrophils 5.1 thou/uL (1.40-6.50); %Basophils 0.8 % (0.0-1.0); %Eosinophils 1.8 % (0.0-10.0); %Lymphocytes 16.1 % (21.0-51.0); %Neutrophils 68.3 % (42.0-75.0); Hemoglobin 8.3 g/dL (12.0-16.0); Mean Corpuscular HGB CONC 32.2 g/dL (32.0-36.0); Mean Corpuscular Hemoglobin 29.4 pg (27.0-31.0); Mean Corpuscular Volume 91.4 fL (78.0-98.0); Mean Platelet Volume 9.5 fL (7.4-10.4); Platelet Count 82 thou/uL (130-400); RBC Distribution Width 15.7 % (11.5-14.5); Red Blood Cell (RBC) Count 2.81 mill/uL (4.20-5.40); White Blood Cell (WBC) Count 7.5 thou/uL (4.8-10.8)
[2022-04-22 04:39] LABS: Anion Gap 10 mmol/L (10-20); BUN (Urea Nitrogen) 17 mg/dL (9.8-20.1); Calc. Creatinine Clearance 77 mL/min (70-130); Carbon Dioxide 26 mmol/L (23-31); Chloride 107 mmol/L (98-107); Potassium 3.6 mmol/L (3.5-5.1); Sodium 139 mmol/L (136-145)
[2022-04-22 04:40] LABS: ALT (SGPT) 34 U/L (8-55); AST (SGOT) 55 U/L (5-34); Alkaline Phosphatase 80 U/L (40-110); Calcium 7.5 mg/dL (7.8-10.44); Globulin 3.8 g/dL (2.4-3.5); Glucose 102 mg/dL (80-115); Magnesium 2.1 mg/dL (1.6-2.6); Phosphorus 3.6 mg/dL (2.3-4.7); Protein, Total 5.8 g/dL (5.8-8.1)
[2022-04-22] MEDS: Fentanyl 100 MCG/2 ML VIAL SLOW IVP PRN (05:26)
[2022-04-22] MEDS: Morphine 4 MG/ML VIAL SLOW IVP PRN ×2 (08:10→20:09)
[2022-04-22] MEDS: Pantoprazole 40 MG VIAL IVP SCH ×2 (08:12→20:08)
[2022-04-22] MEDS: Multivit, Therapeutic 1 TAB PO SCH (08:13)
[2022-04-22] MEDS: Rifaximin 550 MG TAB PO SCH ×2 (08:13→20:09)
[2022-04-22] MEDS: Thiamine 100 MG TAB PO SCH (08:13)
[2022-04-22] MEDS: Folic Acid 1 MG TAB PO SCH (08:13)
[2022-04-22] MEDS: Vancomycin 1 GM in Premix Bag 1 BAG IVPB SCH ×2 (08:14→20:09)
[2022-04-22] MEDS: Lorazepam 2 MG/ML VIAL SLOW IVP PRN ×2 (11:15→17:57)
[2022-04-22] MEDS: Nicotine 14 MG PATCH TD SCH (16:44)
[2022-04-22] MEDS: risperiDONE 0.25 MG TAB PO SCH (20:09)
[2022-04-23] MEDS: Lorazepam 2 MG/ML VIAL SLOW IVP PRN ×2 (00:17→18:09)
[2022-04-23] MEDS: Cefepime 2 GM in Sodium Chloride 0.9% 100 ML IVPB SCH ×2 (02:34→17:03)
[2022-04-23] MEDS: Morphine 4 MG/ML VIAL SLOW IVP PRN (03:23)
[2022-04-23] MEDS: Octreotide Acetate 1,250 MCG in Sodium Chloride 0.9% 250 ML 250 ML IVPB SCH (04:04)
[2022-04-23 04:08] LABS: #Eosinphils 0.2 thou/uL (0.0-0.7); #Lymphocytes 1.2 thou/uL (1.20-3.40); #Monocytes 0.8 thou/uL (0.11-0.59); #Neutrophils 4.7 thou/uL (1.40-6.50); %Eosinophils 2.6 % (0.0-10.0); %Monocytes 11.9 % (0.0-10.0); %Neutrophils 68.5 % (42.0-75.0); Hemoglobin 9.2 g/dL (12.0-16.0); Mean Corpuscular HGB CONC 32.4 g/dL (32.0-36.0); Mean Corpuscular Hemoglobin 29.8 pg (27.0-31.0); Mean Corpuscular Volume 91.8 fL (78.0-98.0); Mean Platelet Volume 9.5 fL (7.4-10.4); Platelet Count 88 thou/uL (130-400); RBC Distribution Width 15.6 % (11.5-14.5); White Blood Cell (WBC) Count 6.9 thou/uL (4.8-10.8)
[2022-04-23 04:38] LABS: ALT (SGPT) 34 U/L (8-55); AST (SGOT) 58 U/L (5-34); Alkaline Phosphatase 88 U/L (40-110); Anion Gap 9 mmol/L (10-20); BUN (Urea Nitrogen) 12 mg/dL (9.8-20.1); Bilirubin, Total 2.6 mg/dL (0.2-1.2); Calc. Creatinine Clearance 79 mL/min (70-130); Calcium 7.7 mg/dL (7.8-10.44); Carbon Dioxide 26 mmol/L (23-31); Chloride 104 mmol/L (98-107); Globulin 4.1 g/dL (2.4-3.5); Glucose 100 mg/dL (80-115); Potassium 3.8 mmol/L (3.5-5.1); Protein, Total 6.1 g/dL (5.8-8.1); Sodium 135 mmol/L (136-145)
[2022-04-23 08:37] LABS: Vancomycin, Trough 17.6 ug/mL
[2022-04-23] MEDS: Multivit, Therapeutic 1 TAB PO SCH (09:54)
[2022-04-23] MEDS: Folic Acid 1 MG TAB PO SCH (09:54)
[2022-04-23] MEDS: Rifaximin 550 MG TAB PO SCH ×2 (09:54→21:08)
[2022-04-23] MEDS: Thiamine 100 MG TAB PO SCH (09:54)
[2022-04-23] MEDS: Pantoprazole 40 MG VIAL IVP SCH ×2 (09:54→21:09)
[2022-04-23] MEDS: Vancomycin 1 GM in Premix Bag 1 BAG IVPB SCH (09:55)
[2022-04-23] MEDS: risperiDONE 0.25 MG TAB PO SCH (09:55)
[2022-04-23] MEDS: Sodium Bicarbonate 150 MEQ in Dextrose 5% in Water 1,000 ML IV SCH (12:27)
[2022-04-23] MEDS: Nicotine 14 MG PATCH TD SCH (17:02)
[2022-04-23] MEDS: cefTRIAXone\\ROCEPHIN 2 GM in Sodium Chloride 0.9% 100 ML IVPB SCH (17:03)
[2022-04-23] MEDS: Lorazepam 0.5 MG TAB PO PRN (21:20)
[2022-04-24] MEDS: Lorazepam 2 MG/ML VIAL SLOW IVP PRN ×3 (01:16→22:23)
[2022-04-24] MEDS: Morphine 4 MG/ML VIAL SLOW IVP PRN ×3 (02:08→20:02)
[2022-04-24] MEDS: Sodium Bicarbonate 150 MEQ in Dextrose 5% in Water 1,000 ML IV SCH ×2 (04:40→20:03)
[2022-04-24 07:51] LABS: #Basophils 0.1 thou/uL (0.0-0.2); #Eosinphils 0.1 thou/uL (0.0-0.7); #Lymphocytes 1.2 thou/uL (1.20-3.40); #Monocytes 1.1 thou/uL (0.11-0.59); #Neutrophils 6.9 thou/uL (1.40-6.50); %Basophils 0.6 % (0.0-1.0); %Eosinophils 0.8 % (0.0-10.0); %Lymphocytes 13.1 % (21.0-51.0); %Monocytes 11.7 % (0.0-10.0); %Neutrophils 73.8 % (42.0-75.0); Hemoglobin 9.7 g/dL (12.0-16.0); Mean Corpuscular HGB CONC 32.8 g/dL (32.0-36.0); Mean Corpuscular Hemoglobin 29.9 pg (27.0-31.0); Mean Corpuscular Volume 91.4 fL (78.0-98.0); Mean Platelet Volume 9.9 fL (7.4-10.4); Platelet Count 91 thou/uL (130-400); RBC Distribution Width 15.4 % (11.5-14.5); Red Blood Cell (RBC) Count 3.22 mill/uL (4.20-5.40); White Blood Cell (WBC) Count 9.4 thou/uL (4.8-10.8)
[2022-04-24 08:07] LABS: ALT (SGPT) 34 U/L (8-55); AST (SGOT) 53 U/L (5-34); Albumin 2.1 g/dL (3.4-4.8); Alkaline Phosphatase 90 U/L (40-110); Anion Gap 10 mmol/L (10-20); BUN (Urea Nitrogen) 8 mg/dL (9.8-20.1); Bilirubin, Total 2.7 mg/dL (0.2-1.2); Calc. Creatinine Clearance 85 mL/min (70-130); Calcium 7.5 mg/dL (7.8-10.44); Carbon Dioxide 25 mmol/L (23-31); Chloride 103 mmol/L (98-107); Globulin 4.2 g/dL (2.4-3.5); Glucose 118 mg/dL (80-115); Potassium 3.5 mmol/L (3.5-5.1); Protein, Total 6.3 g/dL (5.8-8.1); Sodium 134 mmol/L (136-145)
[2022-04-24 08:11] LABS: Vancomycin, Trough 6.2 ug/mL
[2022-04-24] MEDS ORDERED: Potassium Chloride 20 MEQ in Premix Bag 1 BAG IVPB SCH (09:00)
[2022-04-24] MEDS ORDERED: Potassium Chloride 20 MEQ TAB PO SCH (09:45)
[2022-04-24] MEDS: Rifaximin 550 MG TAB PO SCH ×2 (09:50→20:01)
[2022-04-24] MEDS: Thiamine 100 MG TAB PO SCH (09:50)
[2022-04-24] MEDS: Multivit, Therapeutic 1 TAB PO SCH (09:50)
[2022-04-24] MEDS: Pantoprazole 40 MG VIAL IVP SCH ×2 (09:50→20:01)
[2022-04-24] MEDS: Folic Acid 1 MG TAB PO SCH (09:50)
[2022-04-24] MEDS: Octreotide Acetate 1,250 MCG in Sodium Chloride 0.9% 250 ML 250 ML IVPB SCH (11:16)
[2022-04-24] MEDS: Nicotine 14 MG PATCH TD SCH (15:15)
[2022-04-24] MEDS: cefTRIAXone\\ROCEPHIN 2 GM in Sodium Chloride 0.9% 100 ML IVPB SCH (15:15)
[2022-04-24] MEDS: Metoprolol Tartrate 25 MG TAB PO SCH (20:01)
[2022-04-25] MEDS: Morphine 4 MG/ML VIAL SLOW IVP PRN ×3 (01:09→19:48)
[2022-04-25] MEDS: Pantoprazole 40 MG VIAL IVP SCH ×2 (07:45→19:49)
[2022-04-25] MEDS: Thiamine 100 MG TAB PO SCH (07:48)
[2022-04-25] MEDS: Rifaximin 550 MG TAB PO SCH ×2 (07:48→19:49)
[2022-04-25] MEDS: Multivit, Therapeutic 1 TAB PO SCH (07:49)
[2022-04-25] MEDS: Folic Acid 1 MG TAB PO SCH (07:49)
[2022-04-25 10:12] LABS: #Basophils 0.1 thou/uL (0.0-0.2); #Eosinphils 0.2 thou/uL (0.0-0.7); #Lymphocytes 1.3 thou/uL (1.20-3.40); #Monocytes 1.1 thou/uL (0.11-0.59); #Neutrophils 6.5 thou/uL (1.40-6.50); %Basophils 0.9 % (0.0-1.0); %Eosinophils 2.1 % (0.0-10.0); %Lymphocytes 14.1 % (21.0-51.0); %Monocytes 11.6 % (0.0-10.0); %Neutrophils 71.2 % (42.0-75.0); Mean Corpuscular HGB CONC 31.3 g/dL (32.0-36.0); Mean Corpuscular Volume 92.6 fL (78.0-98.0); Mean Platelet Volume 9.7 fL (7.4-10.4); Platelet Count 114 thou/uL (130-400); RBC Distribution Width 15.3 % (11.5-14.5); Red Blood Cell (RBC) Count 3.43 mill/uL (4.20-5.40); White Blood Cell (WBC) Count 9.1 thou/uL (4.8-10.8)
[2022-04-25 10:20] LABS: Anion Gap 9 mmol/L (10-20); BUN (Urea Nitrogen) 6 mg/dL (9.8-20.1); Calc. Creatinine Clearance 83 mL/min (70-130); Calcium 7.8 mg/dL (7.8-10.44); Carbon Dioxide 27 mmol/L (23-31); Chloride 103 mmol/L (98-107); Glucose 104 mg/dL (80-115); Potassium 3.6 mmol/L (3.5-5.1); Sodium 135 mmol/L (136-145)
[2022-04-25] MEDS: Metoprolol Tartrate 25 MG TAB PO SCH ×2 (10:42→19:49)
[2022-04-25] MEDS: Sodium Bicarbonate 150 MEQ in Dextrose 5% in Water 1,000 ML IV SCH (10:43)
[2022-04-25] MEDS: Albumin 25% 25 GM/100 ML BOT IVPB SCH (12:00)
[2022-04-25] MEDS: Nicotine 14 MG PATCH TD SCH (15:18)
[2022-04-25] MEDS: cefTRIAXone\\ROCEPHIN 2 GM in Sodium Chloride 0.9% 100 ML IVPB SCH (15:18)
[2022-04-26] MEDS: Sodium Bicarbonate 150 MEQ in Dextrose 5% in Water 1,000 ML IV SCH ×3 (02:32→20:02)
[2022-04-26] MEDS: Lorazepam 2 MG/ML VIAL SLOW IVP PRN ×2 (02:45→20:02)
[2022-04-26] MEDS: Folic Acid 1 MG TAB PO SCH (08:27)
[2022-04-26] MEDS: Thiamine 100 MG TAB PO SCH (08:28)
[2022-04-26] MEDS: Rifaximin 550 MG TAB PO SCH ×2 (08:28→20:03)
[2022-04-26] MEDS: Pantoprazole 40 MG VIAL IVP SCH ×2 (08:28→20:02)
[2022-04-26] MEDS: Metoprolol Tartrate 25 MG TAB PO SCH ×2 (08:28→20:03)
[2022-04-26] MEDS: Multivit, Therapeutic 1 TAB PO SCH (08:28)
[2022-04-26] MEDS: Albumin 25% 25 GM/100 ML BOT IVPB SCH (14:33)
[2022-04-26] MEDS: Nicotine 14 MG PATCH TD SCH (14:35)
[2022-04-26] MEDS: cefTRIAXone\\ROCEPHIN 2 GM in Sodium Chloride 0.9% 100 ML IVPB SCH (17:44)
[2022-04-26] MEDS: Lorazepam 0.5 MG TAB PO PRN (17:45)
[2022-04-27] MEDS: Lorazepam 0.5 MG TAB PO PRN (09:52)
[2022-04-27] MEDS: Folic Acid 1 MG TAB PO SCH (09:52)
[2022-04-27] MEDS: Rifaximin 550 MG TAB PO SCH ×2 (09:53→21:39)
[2022-04-27] MEDS: Multivit, Therapeutic 1 TAB PO SCH (09:53)
[2022-04-27] MEDS: Metoprolol Tartrate 25 MG TAB PO SCH ×2 (09:53→21:40)
[2022-04-27] MEDS: Pantoprazole 40 MG VIAL IVP SCH ×2 (09:54→21:39)
[2022-04-27] MEDS: Thiamine 100 MG TAB PO SCH (09:54)
[2022-04-27 09:55] LABS: Band 5 % (5-11); Hemoglobin 7.9 g/dL (12.0-16.0); Lymphocytes 19 % (21-51); MDiff Complete? YES; Mean Corpuscular HGB CONC 32.2 g/dL (32.0-36.0); Mean Corpuscular Hemoglobin 29.3 pg (27.0-31.0); Mean Platelet Volume 9.3 fL (7.4-10.4); Monocytes 11 % (0-10); Neutrophil 65 % (42-75); Platelet Count 97 thou/uL (130-400); Platelet Morphology Comment Appears Decreased; Polychromasia SLIGHT = 2-3 cells (100X) (0-2/hpf); RBC Distribution Width 15.3 % (11.5-14.5); Red Blood Cell (RBC) Count 2.68 mill/uL (4.20-5.40); White Blood Cell (WBC) Count 7.4 thou/uL (4.8-10.8)
[2022-04-27] MEDS: cefTRIAXone\\ROCEPHIN 2 GM in Sodium Chloride 0.9% 100 ML IVPB SCH (14:43)
[2022-04-27] MEDS: Lorazepam 2 MG/ML VIAL SLOW IVP PRN ×2 (14:44→21:41)
[2022-04-27] MEDS: Nicotine 14 MG PATCH TD SCH (14:48)
[2022-04-27] MEDS ORDERED: GoLYTELY 4,000 ml Bottle PO SCH (17:00)
[2022-04-27] MEDS: Sodium Bicarbonate 150 MEQ in Dextrose 5% in Water 1,000 ML IV SCH (21:39)
[2022-04-27] MEDS: Fentanyl 100 MCG/2 ML VIAL SLOW IVP PRN (23:37)
[2022-04-28] MEDS ORDERED: Acetaminophen 325 MG TAB PO PRN (03:53)
[2022-04-28] MEDS: Fentanyl 100 MCG/2 ML VIAL SLOW IVP PRN (06:31)
[2022-04-28] MEDS: Rifaximin 550 MG TAB PO SCH ×2 (09:00→20:23)
[2022-04-28] MEDS: Pantoprazole 40 MG VIAL IVP SCH (10:25)
[2022-04-28] MEDS: Metoprolol Tartrate 25 MG TAB PO SCH ×2 (11:07→20:24)
[2022-04-28] MEDS ORDERED: fentaNYL Citrate/PF 100 MCG/2 ML SYRINGE ONE (12:02)
[2022-04-28 13:16] VITALS: BMI 24.7
[2022-04-28] MEDS ORDERED: Meperidine HCl/PF 25 MG/ML VIAL SLOW IVP PRN (13:42)
[2022-04-28] MEDS ORDERED: Fentanyl 100 MCG/2 ML VIAL ONE (13:42)
[2022-04-28] MEDS ORDERED: Promethazine HCl 25 MG/ML VIAL IVPB PRN (13:42)
[2022-04-28] MEDS ORDERED: Ondansetron HCl/PF 4 MG/2 ML Vial IVP PRN (13:42)
[2022-04-28] MEDS ORDERED: HYDROmorphone 2 MG/ML VIAL SLOW IVP PRN (13:42)
[2022-04-28] MEDS: Folic Acid 1 MG TAB PO SCH (15:09)
[2022-04-28] MEDS: Multivit, Therapeutic 1 TAB PO SCH (15:09)
[2022-04-28] MEDS: Thiamine 100 MG TAB PO SCH (15:10)
[2022-04-28] MEDS: Sodium Bicarbonate 150 MEQ in Dextrose 5% in Water 1,000 ML IV SCH (15:10)
[2022-04-28] MEDS: cefTRIAXone\\ROCEPHIN 2 GM in Sodium Chloride 0.9% 100 ML IVPB SCH (15:33)
[2022-04-28] MEDS: Morphine 4 MG/ML VIAL SLOW IVP PRN (15:33)
[2022-04-28] MEDS: Nicotine 14 MG PATCH TD SCH (15:50)
[2022-04-29] MEDS: Morphine 4 MG/ML VIAL SLOW IVP PRN (00:11)
[2022-04-29] MEDS: Sodium Bicarbonate 150 MEQ in Dextrose 5% in Water 1,000 ML IV SCH ×2 (03:59→18:31)
[2022-04-29] MEDS ORDERED: Labetalol HCl 100 MG/20 ML VIAL SLOW IVP SCH (04:30)
[2022-04-29 05:11] LABS: #Basophils 0.1 thou/uL (0.0-0.2); #Eosinphils 0.1 thou/uL (0.0-0.7); #Lymphocytes 2.9 thou/uL (1.20-3.40); #Monocytes 1.9 thou/uL (0.11-0.59); #Neutrophils 7.7 thou/uL (1.40-6.50); %Basophils 0.7 % (0.0-1.0); %Eosinophils 0.6 % (0.0-10.0); %Lymphocytes 22.6 % (21.0-51.0); %Monocytes 14.9 % (0.0-10.0); %Neutrophils 61.3 % (42.0-75.0); Hemoglobin 9.3 g/dL (12.0-16.0); Mean Corpuscular HGB CONC 30.7 g/dL (32.0-36.0); Mean Corpuscular Hemoglobin 28.1 pg (27.0-31.0); Mean Corpuscular Volume 91.5 fL (78.0-98.0); Mean Platelet Volume 9.6 fL (7.4-10.4); Platelet Count 141 thou/uL (130-400); RBC Distribution Width 15.2 % (11.5-14.5); Red Blood Cell (RBC) Count 3.31 mill/uL (4.20-5.40); White Blood Cell (WBC) Count 12.6 thou/uL (4.8-10.8)
[2022-04-29] MEDS: Thiamine 100 MG TAB PO SCH (09:00)
[2022-04-29] MEDS: Multivit, Therapeutic 1 TAB PO SCH (09:00)
[2022-04-29] MEDS: Folic Acid 1 MG TAB PO SCH (09:00)
[2022-04-29] MEDS ORDERED: Lidocaine 1% PF 5 ML VIAL ONE (12:52)
[2022-04-29] MEDS ORDERED: Sodium Bicarbonate 2.5 MEQ/5 ML VIAL ONE (12:52)
[2022-04-29] MEDS: Rifaximin 550 MG TAB PO SCH ×2 (15:53→20:43)
[2022-04-29] MEDS: Metoprolol Tartrate 25 MG TAB PO SCH ×2 (15:53→20:43)
[2022-04-29] MEDS: cefTRIAXone\\ROCEPHIN 2 GM in Sodium Chloride 0.9% 100 ML IVPB SCH (16:52)
[2022-04-29] MEDS: Nicotine 14 MG PATCH TD SCH (16:52)
[2022-04-29] MEDS: Lorazepam 0.5 MG TAB PO PRN (20:44)
[2022-04-30] MEDS: Sodium Bicarbonate 150 MEQ in Dextrose 5% in Water 1,000 ML IV SCH ×2 (00:41→19:01)
[2022-04-30] MEDS: Morphine 4 MG/ML VIAL SLOW IVP PRN ×3 (02:56→15:41)
[2022-04-30 06:14] LABS: #Basophils 0.1 thou/uL (0.0-0.2); #Eosinphils 0.1 thou/uL (0.0-0.7); #Lymphocytes 1.7 thou/uL (1.20-3.40); #Monocytes 1.2 thou/uL (0.11-0.59); #Neutrophils 5.2 thou/uL (1.40-6.50); %Basophils 1.2 % (0.0-1.0); %Eosinophils 0.6 % (0.0-10.0); %Lymphocytes 20.7 % (21.0-51.0); %Monocytes 14.5 % (0.0-10.0); %Neutrophils 62.9 % (42.0-75.0); Hemoglobin 8.4 g/dL (12.0-16.0); MDiff Complete? YES; Mean Corpuscular Hemoglobin 28.1 pg (27.0-31.0); Mean Corpuscular Volume 90.6 fL (78.0-98.0); Mean Platelet Volume 10.1 fL (7.4-10.4); Platelet Count 100 thou/uL (130-400); Platelet Morphology Comment Appears Decreased; Polychromasia SLIGHT = 2-3 cells (100X) (0-2/hpf); Red Blood Cell (RBC) Count 2.99 mill/uL (4.20-5.40); White Blood Cell (WBC) Count 8.3 thou/uL (4.8-10.8)
[2022-04-30] MEDS: Metoprolol Tartrate 25 MG TAB PO SCH ×2 (08:01→20:48)
[2022-04-30] MEDS: Rifaximin 550 MG TAB PO SCH ×2 (08:01→20:48)
[2022-04-30] MEDS: Multivit, Therapeutic 1 TAB PO SCH (08:01)
[2022-04-30] MEDS: Thiamine 100 MG TAB PO SCH (08:01)
[2022-04-30] MEDS: Folic Acid 1 MG TAB PO SCH (08:01)
[2022-04-30] MEDS: Nicotine 14 MG PATCH TD SCH (14:54)
[2022-04-30] MEDS: cefTRIAXone\\ROCEPHIN 2 GM in Sodium Chloride 0.9% 100 ML IVPB SCH (16:04)
[2022-04-30] MEDS: Lorazepam 0.5 MG TAB PO PRN (19:01)
[2022-05-01] MEDS: Morphine 4 MG/ML VIAL SLOW IVP PRN (06:30)
[2022-05-01] MEDS ORDERED: Morphine 4 MG/ML VIAL SLOW IVP PRN (08:00)
[2022-05-01] MEDS: Folic Acid 1 MG TAB PO SCH (09:55)
[2022-05-01] MEDS: Metoprolol Tartrate 25 MG TAB PO SCH (09:55)
[2022-05-01] MEDS: Multivit, Therapeutic 1 TAB PO SCH (09:55)
[2022-05-01] MEDS: Rifaximin 550 MG TAB PO SCH (09:56)
[2022-05-01] MEDS: Thiamine 100 MG TAB PO SCH (09:57)
[2022-05-01] MEDS: Nicotine 14 MG PATCH TD SCH (15:36)
[2022-05-01] MEDS: cefTRIAXone\\ROCEPHIN 2 GM in Sodium Chloride 0.9% 100 ML IVPB SCH (16:09)
[2022-05-01] MEDS: Sodium Bicarbonate 150 MEQ in Dextrose 5% in Water 1,000 ML IV SCH (16:10)
[2022-05-01] MEDS: Lorazepam 0.5 MG TAB PO PRN (18:01)
[2022-05-01 20:11] VITALS: BP 121/79; TEMP 99
== END 2022-05-01 21:50 | disposition home or self-care (01) | DRG 377 ==
LOC: ERS 10:06 → ERHOLD 12:08 → CCU 14:37 → IMCU/EMU 04-22 17:11 → MSONC 04-27 21:27
PROVIDERS: ADMIT Internal Medicine; ATTEND Hospitalist
PROC: 30233N1 Transfusion of Nonautologous Red Blood Cells into Peripheral Vein, Percutaneous Approach (ICD-10-PCS; principal; 2022-04-19)
PROC: 0W9G3ZZ Drainage of Peritoneal Cavity, Percutaneous Approach (ICD-10-PCS; 2022-04-21)
PROC: 0W9G3ZZ Drainage of Peritoneal Cavity, Percutaneous Approach (ICD-10-PCS; 2022-04-24)
PROC: 0DB68ZX Excision of Stomach, Via Natural or Artificial Opening Endoscopic, Diagnostic (ICD-10-PCS; 2022-04-28)
PROC: 06L38CZ Occlusion of Esophageal Vein with Extraluminal Device, Via Natural or Artificial Opening Endoscopic (ICD-10-PCS; 2022-04-28)
PROC: 0DBP8ZZ Excision of Rectum, Via Natural or Artificial Opening Endoscopic (ICD-10-PCS; 2022-04-28)
PROC: 0DBN8ZZ Excision of Sigmoid Colon, Via Natural or Artificial Opening Endoscopic (ICD-10-PCS; 2022-04-28)
PROC: 0W9G3ZZ Drainage of Peritoneal Cavity, Percutaneous Approach (ICD-10-PCS; 2022-04-29)
PROC: HZ2ZZZZ Detoxification Services for Substance Abuse Treatment (ICD-10-PCS; 2022-04-30)
PROC: 05HY33Z Insertion of Infusion Device into Upper Vein, Percutaneous Approach (ICD-10-PCS; 2022-05-01)
PROC: B54NZZA Ultrasonography of Left Upper Extremity Veins, Guidance (ICD-10-PCS; 2022-05-01)
PROC: B51N1ZA Fluoroscopy of Left Upper Extremity Veins using Low Osmolar Contrast, Guidance (ICD-10-PCS; 2022-05-01)
DX: K25.4 Chronic or unspecified gastric ulcer with hemorrhage (principal); K65.9 Peritonitis, unspecified; G93.41 Metabolic encephalopathy; E87.2 Acidosis; N17.9 Acute kidney failure, unspecified; M46.24 Osteomyelitis of vertebra, thoracic region; E46 Unspecified protein-calorie malnutrition; K76.6 Portal hypertension; E87.1 Hypo-osmolality and hyponatremia; F10.139 Alcohol abuse with withdrawal, unspecified; K51.00 Ulcerative (chronic) pancolitis without complications; A04.72 Enterocolitis due to Clostridium difficile, not specified as recurrent; M48.54XA Collapsed vertebra, not elsewhere classified, thoracic region, initial encounter for fracture; R78.81 Bacteremia; D62 Acute posthemorrhagic anemia; K70.31 Alcoholic cirrhosis of liver with ascites; Z20.822 Contact with and (suspected) exposure to COVID-19; K60.4 Rectal fistula; I10 Essential (primary) hypertension; J44.9 Chronic obstructive pulmonary disease, unspecified; M46.44 Discitis, unspecified, thoracic region; B18.2 Chronic viral hepatitis C; D69.6 Thrombocytopenia, unspecified; B95.62 Methicillin resistant Staphylococcus aureus infection as the cause of diseases classified elsewhere; D12.5 Benign neoplasm of sigmoid colon; K31.89 Other diseases of stomach and duodenum; K72.90 Hepatic failure, unspecified without coma; N94.89 Other specified conditions associated with female genital organs and menstrual cycle; K29.80 Duodenitis without bleeding; I85.10 Secondary esophageal varices without bleeding; R45.1 Restlessness and agitation; K64.8 Other hemorrhoids; K57.30 Diverticulosis of large intestine without perforation or abscess without bleeding; K62.1 Rectal polyp; F12.90 Cannabis use, unspecified, uncomplicated; F17.210 Nicotine dependence, cigarettes, uncomplicated; Z79.899 Other long term (current) drug therapy; Z68.24 Body mass index [BMI] 24.0-24.9, adult; Z78.1 Physical restraint status; Z71.6 Tobacco abuse counseling
CPT/HCPCS: 36415; 36416; 36430; 36569; 49083; 51701; 71045; 71275; 72157; 74177; 80048; 80053; 80202; 80306; 81003; 81015; 82140; 82553; 82607; 82728; 82746; 83540; 83550; 83605; 83735; 83880; 84100; 84484; 85025; 85046; 85060; 85379; 85610; 85730; 86850; 86900; 86901; 87040; 87070; 87086; 87205; 88305; 89051; 93005; 94640; 96360; 96365; 96375; C9113; J0692; J0696; J2060; J2270; J2354; J2405; J3010; J3370; J3411; J3475; J3490; J7050; J7070; J7120; J7620; P9016; P9047; Q9967; U0002; U0003; U0005

== ENCOUNTER 2022-05-05 11:01 | Emergency (ER) | payer SELFPAY ==
[2022-05-05 12:01] LABS: Hemoglobin 8.8 g/dL (12.0-16.0); Mean Corpuscular HGB CONC 29.8 g/dL (32.0-36.0); Mean Corpuscular Hemoglobin 27.2 pg (27.0-31.0); Mean Corpuscular Volume 91.4 fL (78.0-98.0); Mean Platelet Volume 11.5 fL (7.4-10.4); Platelet Count 79 thou/uL (130-400); RBC Distribution Width 15.9 % (11.5-14.5); Red Blood Cell (RBC) Count 3.24 mill/uL (4.20-5.40)
[2022-05-05 12:23] LABS: ALT (SGPT) 18 U/L (8-55); AST (SGOT) 40 U/L (5-34); Albumin 2.2 g/dL (3.4-4.8); Alkaline Phosphatase 96 U/L (40-110); Anion Gap 12 mmol/L (10-20); BUN (Urea Nitrogen) 13 mg/dL (9.8-20.1); Bilirubin, Total 1.5 mg/dL (0.2-1.2); Calc. Creatinine Clearance 0 mL/min (70-130); Calcium 7.7 mg/dL (7.8-10.44); Carbon Dioxide 23 mmol/L (23-31); Chloride 111 mmol/L (98-107); Globulin 4.3 g/dL (2.4-3.5); Glucose 86 mg/dL (80-115); Lipase 51 U/L (8-78); Potassium 3.3 mmol/L (3.5-5.1); Protein, Total 6.5 g/dL (5.8-8.1); Sodium 143 mmol/L (136-145)
[2022-05-05 12:26] LABS: Band 3 % (5-11); Eosinophils 2 % (0-10); Hypochromia SLIGHT = 6-15 cells (100X) (0-5/hpf); Lymphocytes 18 % (21-51); MDiff Complete? YES; Monocytes 6 % (0-10); Neutrophil 68 % (42-75); Platelet Morphology Comment Appears Decreased; Polychromasia SLIGHT = 2-3 cells (100X) (0-2/hpf); Reactive Lymphocytes 1 % (0-10); Schistocytes SLIGHT = 2-5 cells (100X) (0-1/hpf)
[2022-05-05] MEDS ORDERED: Lidocaine 1% PF 5 ML VIAL ONE (14:44)
[2022-05-05 16:35] LABS: RBC Count-Automated (BF) 87 /cu.mm; WBC/Nucleated-Auto (BF) 271 /cu.mm
[2022-05-05 16:54] LABS: Body Fluid Source Peritoneal Fluid; Tube # 3
[2022-05-05 16:55] LABS: BF Color Yellow; Clarity Clear (Clear)
[2022-05-05 16:56] LABS: BF Segmented Neutrophils 2 %; Cell Count Non Hematic 20 %; Lymphocytes 78 %
== END 2022-05-05 16:25 | disposition home or self-care (01) ==
LOC: ERS 11:01
DX: R53.1 Weakness (principal); R14.0 Abdominal distension (gaseous); I45.2 Bifascicular block; I10 Essential (primary) hypertension; J44.9 Chronic obstructive pulmonary disease, unspecified; Z98.890 Other specified postprocedural states; Z87.19 Personal history of other diseases of the digestive system; Z87.891 Personal history of nicotine dependence
CPT/HCPCS: 36415; 49083; 80053; 82140; 83690; 83880; 84484; 85025; 85060; 89051; 93005; 94760

== ENCOUNTER 2022-05-09 12:28 | Emergency (ER) | payer SELFPAY ==
[2022-05-09 13:07] LABS: #Lymphocytes 1.4 thou/uL (1.20-3.40); #Monocytes 0.7 thou/uL (0.11-0.59); %Basophils 0.9 % (0.0-1.0); %Eosinophils 0.6 % (0.0-10.0); %Lymphocytes 26.4 % (21.0-51.0); %Monocytes 14.3 % (0.0-10.0); %Neutrophils 57.7 % (42.0-75.0); Mean Corpuscular HGB CONC 30.4 g/dL (32.0-36.0); Mean Corpuscular Hemoglobin 27.3 pg (27.0-31.0); Mean Corpuscular Volume 89.7 fL (78.0-98.0); Mean Platelet Volume 11.8 fL (7.4-10.4); Platelet Count 78 thou/uL (130-400); RBC Distribution Width 16.6 % (11.5-14.5); Red Blood Cell (RBC) Count 3.31 mill/uL (4.20-5.40); White Blood Cell (WBC) Count 5.1 thou/uL (4.8-10.8)
[2022-05-09 13:24] LABS: ALT (SGPT) 20 U/L (8-55); AST (SGOT) 46 U/L (5-34); Albumin 2.5 g/dL (3.4-4.8); Alkaline Phosphatase 96 U/L (40-110); Anion Gap 14 mmol/L (10-20); BUN (Urea Nitrogen) 17 mg/dL (9.8-20.1); Bilirubin, Total 1.1 mg/dL (0.2-1.2); Calc. Creatinine Clearance 0 mL/min (70-130); Calcium 7.8 mg/dL (7.8-10.44); Carbon Dioxide 20 mmol/L (23-31); Chloride 114 mmol/L (98-107); Estimated GFR 53; Globulin 4.8 g/dL (2.4-3.5); Glucose 71 mg/dL (80-115); Potassium 3.8 mmol/L (3.5-5.1); Protein, Total 7.3 g/dL (5.8-8.1); Sodium 144 mmol/L (136-145)
[2022-05-09 13:40] LABS: INR-International Normal Ratio 1.3; Prothrombin Time 16.6 sec (12.0-14.7)
== END 2022-05-09 15:09 | disposition home or self-care (01) ==
LOC: ERS 12:28
DX: R60.0 Localized edema (principal); K74.60 Unspecified cirrhosis of liver; I10 Essential (primary) hypertension; J44.9 Chronic obstructive pulmonary disease, unspecified; Z87.19 Personal history of other diseases of the digestive system; Z87.891 Personal history of nicotine dependence; Z79.899 Other long term (current) drug therapy
CPT/HCPCS: 71045; 80053; 85025; 85610

== ENCOUNTER 2022-05-17 10:08 | Inpatient (IN) | payer SELFPAY ==
[2022-05-17] MEDS ORDERED: cefTRIAXone\\ROCEPHIN 2 GM VIAL ONE (10:41)
[2022-05-17 11:03] LABS: #Basophils 0.1 thou/uL (0.0-0.2); #Monocytes 1.3 thou/uL (0.11-0.59); %Basophils 0.7 % (0.0-1.0); %Eosinophils 0.2 % (0.0-10.0); %Lymphocytes 14.7 % (21.0-51.0); %Monocytes 9.8 % (0.0-10.0); %Neutrophils 74.7 % (42.0-75.0); Hemoglobin 8.9 g/dL (12.0-16.0); Mean Corpuscular HGB CONC 30.9 g/dL (32.0-36.0); Mean Corpuscular Hemoglobin 27.6 pg (27.0-31.0); Mean Corpuscular Volume 89.3 fL (78.0-98.0); Mean Platelet Volume 10.1 fL (7.4-10.4); Platelet Count 222 thou/uL (130-400); Red Blood Cell (RBC) Count 3.24 mill/uL (4.20-5.40); White Blood Cell (WBC) Count 13.3 thou/uL (4.8-10.8)
[2022-05-17 11:04] LABS: INR-International Normal Ratio 1.5; PTT 36.2 sec (22.9-36.1); Prothrombin Time 18.1 sec (12.0-14.7)
[2022-05-17 11:13] LABS: ALT (SGPT) 23 U/L (8-55); AST (SGOT) 39 U/L (5-34); Albumin 2.5 g/dL (3.4-4.8); Alkaline Phosphatase 92 U/L (40-110); Anion Gap 12 mmol/L (10-20); BUN (Urea Nitrogen) 15 mg/dL (9.8-20.1); Bilirubin, Total 1.4 mg/dL (0.2-1.2); Calc. Creatinine Clearance 0 mL/min (70-130); Calcium 8.3 mg/dL (7.8-10.44); Carbon Dioxide 17 mmol/L (23-31); Chloride 111 mmol/L (98-107); Estimated GFR 88; Globulin 4.6 g/dL (2.4-3.5); Glucose 94 mg/dL (80-115); Lipase 40 U/L (8-78); Potassium 4.3 mmol/L (3.5-5.1); Protein, Total 7.1 g/dL (5.8-8.1); Sodium 136 mmol/L (136-145)
[2022-05-17] MEDS ORDERED: Pantoprazole 40 MG VIAL ONE (11:23)
[2022-05-17] MEDS ORDERED: HYDROcodone/Acetaminophen 5/325 mg Tablet ONE (11:23)
[2022-05-17] MEDS ORDERED: Ondansetron PF 4 MG/2 ML Vial ONE (11:23)
[2022-05-17] MEDS ORDERED: Senokot S 8.6-50 MG TAB PO PRN (12:04)
[2022-05-17] MEDS ORDERED: Acetaminophen 325 MG TAB PO PRN (12:04)
[2022-05-17] MEDS ORDERED: Ondansetron ODT 4 MG TAB PO PRN (12:04)
[2022-05-17] MEDS ORDERED: Ondansetron PF 4 MG/2 ML Vial IVP PRN (12:04)
[2022-05-17] MEDS ORDERED: Guaifenesin DM 100-10/5 ML UDCUP PO PRN (12:04)
[2022-05-17] MEDS ORDERED: Sodium Chloride 0.9% 1,000 ML IV SCH (12:15)
[2022-05-17] MEDS ORDERED: Octreotide Acetate 1,250 MCG in Sodium Chloride 0.9% 250 ML 250 ML IVPB SCH (12:15)
[2022-05-17 12:25] LABS: Bacteria/HPF None Seen HPF (None Seen); Bilirubin Negative (Negative); Blood, Urine 3+ (Negative); Clarity Clear (Clear); Glucose, Urine (Dipstick) Normal (Negative); Ketone, Urine Trace mg/dL (Negative); Leukocyte Negative Leu/uL (Negative); Nitrite Negative (Negative); Protein, Urine (Dipstick) 30 mg/dL (Neg-Trace); Specific Gravity, Urine 1.034 (1.002-1.036); pH, Urine 5.5 (5.0-9.0)
[2022-05-17 13:52] LABS: SARS-CoV-2 NAA Rapid Test Not Detected (NotDetected)
[2022-05-17] MEDS: Furosemide 40 MG/4 ML VIAL SLOW IVP SCH (15:13)
[2022-05-17] MEDS: Sodium Chloride 0.9% 1,000 ML IV SCH (15:14)
[2022-05-17] MEDS: Pantoprazole 80 MG in Sodium Chloride 0.9% 100 ML IVPB SCH (15:14)
[2022-05-17 17:26] VITALS: BMI 25.3
[2022-05-17 18:47] LABS: Hemoglobin 8.2 g/dL (12.0-16.0)
[2022-05-18 00:01] LABS: Hemoglobin 7.6 g/dL (12.0-16.0)
[2022-05-18] MEDS: Pantoprazole 80 MG in Sodium Chloride 0.9% 100 ML IVPB SCH ×3 (01:22→22:52)
[2022-05-18] MEDS: Furosemide 40 MG/4 ML VIAL SLOW IVP SCH ×2 (05:30→14:03)
[2022-05-18 05:50] LABS: Hemoglobin 7.3 g/dL (12.0-16.0)
[2022-05-18 06:06] LABS: INR-International Normal Ratio 1.7; PTT 37.6 sec (22.9-36.1); Prothrombin Time 20.3 sec (12.0-14.7)
[2022-05-18 06:12] LABS: ALT (SGPT) 21 U/L (8-55); AST (SGOT) 41 U/L (5-34); Albumin 2.2 g/dL (3.4-4.8); Alkaline Phosphatase 76 U/L (40-110); Anion Gap 10 mmol/L (10-20); BUN (Urea Nitrogen) 15 mg/dL (9.8-20.1); Bilirubin, Total 1.2 mg/dL (0.2-1.2); Calc. Creatinine Clearance 72 mL/min (70-130); Calcium 7.9 mg/dL (7.8-10.44); Carbon Dioxide 20 mmol/L (23-31); Chloride 111 mmol/L (98-107); Estimated GFR 78; Glucose 91 mg/dL (80-115); Potassium 4.2 mmol/L (3.5-5.1); Protein, Total 6.2 g/dL (5.8-8.1); Sodium 137 mmol/L (136-145)
[2022-05-18] MEDS: Spironolactone 100 MG TAB PO SCH (07:54)
[2022-05-18] MEDS: Sodium Chloride 0.9% 1,000 ML IV SCH (07:56)
[2022-05-18] MEDS ORDERED: Xylocaine 1% w/ Epi 1:100K 10 ML VIAL ONE (08:47)
[2022-05-18] MEDS ORDERED: Lidocaine 1% (PF) 30 ML VIAL ONE (08:47)
[2022-05-18] MEDS ORDERED: cefTRIAXone\\ROCEPHIN 1 GM in Sodium Chloride 0.9% 100 ML IVPB SCH ×3 (15:00→17:00)
[2022-05-18] MEDS ORDERED: cefTRIAXone\\ROCEPHIN 2 GM in Sodium Chloride 0.9% 100 ML IVPB SCH (17:00)
[2022-05-19] LABS: Hemoglobin 6.8 g/dL (12.0-16.0)
[2022-05-19] MEDS: Sodium Chloride 0.9% 1,000 ML IV SCH (05:25)
[2022-05-19 05:26] LABS: #Basophils 0.1 thou/uL (0.0-0.2); #Lymphocytes 2.2 thou/uL (1.20-3.40); #Monocytes 1.3 thou/uL (0.11-0.59); #Neutrophils 6.1 thou/uL (1.40-6.50); %Basophils 0.6 % (0.0-1.0); %Eosinophils 0.5 % (0.0-10.0); %Lymphocytes 22.4 % (21.0-51.0); %Monocytes 13.7 % (0.0-10.0); %Neutrophils 62.8 % (42.0-75.0); Hemoglobin 7.7 g/dL (12.0-16.0); Mean Corpuscular HGB CONC 30.5 g/dL (32.0-36.0); Mean Corpuscular Hemoglobin 26.8 pg (27.0-31.0); Mean Corpuscular Volume 87.8 fL (78.0-98.0); Mean Platelet Volume 9.9 fL (7.4-10.4); Platelet Count 122 thou/uL (130-400); RBC Distribution Width 16.9 % (11.5-14.5); Red Blood Cell (RBC) Count 2.88 mill/uL (4.20-5.40); White Blood Cell (WBC) Count 9.8 thou/uL (4.8-10.8)
[2022-05-19 05:41] LABS: Anion Gap 10 mmol/L (10-20); BUN (Urea Nitrogen) 11 mg/dL (9.8-20.1); Calc. Creatinine Clearance 81 mL/min (70-130); Calcium 7.3 mg/dL (7.8-10.44); Carbon Dioxide 20 mmol/L (23-31); Chloride 112 mmol/L (98-107); Estimated GFR 91; Glucose 93 mg/dL (80-115); Potassium 3.7 mmol/L (3.5-5.1); Sodium 138 mmol/L (136-145)
[2022-05-19] MEDS: Spironolactone 100 MG TAB PO SCH ×2 (08:00→09:05)
[2022-05-19] MEDS ORDERED: Spironolactone 100 MG TAB PO SCH (08:00)
[2022-05-19] MEDS: Furosemide 40 MG TAB PO SCH ×2 (08:00→09:05)
[2022-05-19] MEDS ORDERED: Midazolam HCl 2 mg/2 ml Vial ONE (10:14)
[2022-05-19] MEDS ORDERED: Fentanyl 100 MCG/2 ML VIAL ONE (10:15)
[2022-05-19] MEDS ORDERED: Phenylephrine 10 MG/ML VIAL ONE (10:23)
[2022-05-19] MEDS ORDERED: Lidocaine 1% PF 5 ML VIAL ONE (10:23)
[2022-05-19] MEDS ORDERED: PROPOFOL 200 MG/20 ML VIAL ONE (10:23)
[2022-05-19] MEDS ORDERED: cefTRIAXone\\ROCEPHIN 2 GM in Sodium Chloride 0.9% 100 ML IVPB SCH (16:00)
[2022-05-19] MEDS: Pantoprazole 40 MG VIAL IVP SCH (21:32)
[2022-05-20] MEDS: Sodium Chloride 0.9% 1,000 ML IV SCH ×2 (01:45→20:15)
[2022-05-20] MEDS ORDERED: Calcium Carbonate 500 MG ChewTAB PO SCH (04:00)
[2022-05-20] MEDS ORDERED: Mag-Al Plus 1200 MG/1200 MG/120 MG/30 ML UDCUP PO SCH (06:45)
[2022-05-20] MEDS: Furosemide 40 MG TAB PO SCH (08:53)
[2022-05-20] MEDS: Spironolactone 100 MG TAB PO SCH (08:53)
[2022-05-20] MEDS: Pantoprazole 40 MG VIAL IVP SCH (08:54)
[2022-05-20] MEDS: traMADol HCl 50 MG TAB PO PRN (20:14)
[2022-05-20] MEDS ORDERED: cefTRIAXone\\ROCEPHIN 1 GM in Sodium Chloride 0.9% 100 ML IVPB SCH (21:30)
[2022-05-20] MEDS: Mag-Al Plus 1200 MG/1200 MG/120 MG/30 ML UDCUP PO PRN (23:20)
[2022-05-21] MEDS: traMADol HCl 50 MG TAB PO PRN (05:32)
[2022-05-21 05:40] LABS: Anion Gap 10 mmol/L (10-20); BUN (Urea Nitrogen) 9 mg/dL (9.8-20.1); Calc. Creatinine Clearance 71 mL/min (70-130); Calcium 7.5 mg/dL (7.8-10.44); Carbon Dioxide 20 mmol/L (23-31); Chloride 111 mmol/L (98-107); Estimated GFR 99; Glucose 81 mg/dL (80-115); Magnesium 1.6 mg/dL (1.6-2.6); Potassium 3.4 mmol/L (3.5-5.1); Sodium 138 mmol/L (136-145)
[2022-05-21] MEDS: Mag-Al Plus 1200 MG/1200 MG/120 MG/30 ML UDCUP PO PRN (05:41)
[2022-05-21 05:49] LABS: Elliptocytes SLIGHT = 2-5 cells (100X) (0-1/hpf); Hemoglobin 7.9 g/dL (12.0-16.0); Hypochromia SLIGHT = 6-15 cells (100X) (0-5/hpf); Lymphocytes 14 % (21-51); MDiff Complete? YES; Mean Corpuscular HGB CONC 30.5 g/dL (32.0-36.0); Mean Corpuscular Hemoglobin 26.3 pg (27.0-31.0); Mean Corpuscular Volume 86.3 fL (78.0-98.0); Monocytes 8 % (0-10); Neutrophil 77 % (42-75); Nucleated RBC 1 % (0); Platelet Count 93 thou/uL (130-400); Platelet Morphology Comment Appears Decreased; Polychromasia SLIGHT = 2-3 cells (100X) (0-2/hpf); RBC Distribution Width 16.7 % (11.5-14.5); Red Blood Cell (RBC) Count 3.02 mill/uL (4.20-5.40); Schistocytes SLIGHT = 2-5 cells (100X) (0-1/hpf); Tear Drops SLIGHT = 2-5 cells (100X) (0-1/hpf); White Blood Cell (WBC) Count 9.3 thou/uL (4.8-10.8)
[2022-05-21] MEDS: Furosemide 40 MG TAB PO SCH (08:31)
[2022-05-21] MEDS: Spironolactone 100 MG TAB PO SCH (08:33)
[2022-05-21] MEDS ORDERED: Electrolyte Replacement Protocol 1 EACH FS SCH (09:30)
[2022-05-21] MEDS ORDERED: Potassium Chloride 20 MEQ TAB PO SCH (11:00)
[2022-05-21] MEDS ORDERED: Magnesium 2 GM/50 ML(in water) 2 GM in Premix Bag 1 BAG IVPB SCH (11:00)
[2022-05-21] MEDS: cefTRIAXone\\ROCEPHIN 2 GM in Sodium Chloride 0.9% 100 ML IVPB SCH (20:44)
[2022-05-22] MEDS: Mag-Al Plus 1200 MG/1200 MG/120 MG/30 ML UDCUP PO PRN (02:47)
[2022-05-22 07:26] LABS: Hemoglobin 8.2 g/dL (12.0-16.0)
[2022-05-22] MEDS: Furosemide 40 MG TAB PO SCH (08:14)
[2022-05-22] MEDS: Spironolactone 100 MG TAB PO SCH (08:14)
[2022-05-22] MEDS: cefTRIAXone\\ROCEPHIN 2 GM in Sodium Chloride 0.9% 100 ML IVPB SCH (21:26)
[2022-05-22] MEDS: traMADol HCl 50 MG TAB PO PRN (22:58)
[2022-05-23] MEDS: Spironolactone 100 MG TAB PO SCH (08:21)
[2022-05-23] MEDS: Furosemide 40 MG TAB PO SCH (08:21)
[2022-05-23] MEDS: traMADol HCl 50 MG TAB PO PRN ×2 (09:44→22:14)
[2022-05-23] MEDS ORDERED: cefTRIAXone\\ROCEPHIN 2 GM in Sodium Chloride 0.9% 100 ML IVPB SCH (11:00)
[2022-05-23 19:48] VITALS: BP 119/69; TEMP 99
== END 2022-05-23 23:45 | disposition home or self-care (01) | DRG 432 ==
LOC: ERS 10:08 → IMCU/EMU 12:04 → T4-B 05-19 23:11
PROVIDERS: ADMIT Internal Medicine; ATTEND Internal Medicine
PROC: 0W9G3ZZ Drainage of Peritoneal Cavity, Percutaneous Approach (ICD-10-PCS; 2022-05-18)
PROC: 0W3P8ZZ Control Bleeding in Gastrointestinal Tract, Via Natural or Artificial Opening Endoscopic (ICD-10-PCS; principal; 2022-05-19)
PROC: 30233N1 Transfusion of Nonautologous Red Blood Cells into Peripheral Vein, Percutaneous Approach (ICD-10-PCS; 2022-05-19)
PROC: 02HV33Z Insertion of Infusion Device into Superior Vena Cava, Percutaneous Approach (ICD-10-PCS; 2022-05-22)
PROC: B5181ZA Fluoroscopy of Superior Vena Cava using Low Osmolar Contrast, Guidance (ICD-10-PCS; 2022-05-22)
PROC: B548ZZA Ultrasonography of Superior Vena Cava, Guidance (ICD-10-PCS; 2022-05-22)
DX: K70.31 Alcoholic cirrhosis of liver with ascites (principal); I85.11 Secondary esophageal varices with bleeding; K25.4 Chronic or unspecified gastric ulcer with hemorrhage; K55.21 Angiodysplasia of colon with hemorrhage; D62 Acute posthemorrhagic anemia; R78.81 Bacteremia; T82.594A Other mechanical complication of infusion catheter, initial encounter; Z20.822 Contact with and (suspected) exposure to COVID-19; E87.6 Hypokalemia; E83.42 Hypomagnesemia; I10 Essential (primary) hypertension; B95.61 Methicillin susceptible Staphylococcus aureus infection as the cause of diseases classified elsewhere; K26.9 Duodenal ulcer, unspecified as acute or chronic, without hemorrhage or perforation; B19.20 Unspecified viral hepatitis C without hepatic coma; Y84.8 Other medical procedures as the cause of abnormal reaction of the patient, or of later complication, without mention of misadventure at the time of the procedure; Z98.890 Other specified postprocedural states; Z80.41 Family history of malignant neoplasm of ovary; Z79.899 Other long term (current) drug therapy; Z80.3 Family history of malignant neoplasm of breast; Z80.0 Family history of malignant neoplasm of digestive organs
CPT/HCPCS: 36415; 36416; 36430; 36569; 49083; 80048; 80053; 80307; 81003; 81015; 82941; 83605; 83690; 83735; 85014; 85018; 85025; 85610; 85730; 86850; 86900; 86901; 87040; 87086; 93005; 93010; 96365; 96375; C1751; C9113; J0696; J1610; J1940; J2001; J2250; J2354; J2370; J2405; J2704; J3010; J3475; J3490; J7050; P9016

== ENCOUNTER → 2022-05-25 | Day surgery (SDC) | payer SELFPAY ==
[2022-05-25 16:12] VITALS: BP 145/71; TEMP 98.6
== END | disposition home or self-care (01) ==
LOC: SJX 14:55
DX: M86.9 Osteomyelitis, unspecified (principal)
CPT/HCPCS: 96365

== ENCOUNTER 2022-07-08 19:57 | Emergency (ER) | payer SELFPAY ==
[2022-07-08 20:30] LABS: INR-International Normal Ratio 1.4; PTT 41.7 sec (22.9-36.1); Prothrombin Time 17.5 sec (12.0-14.7)
[2022-07-08 20:35] LABS: Hemoglobin 7.4 g/dL (12.0-16.0); Mean Corpuscular HGB CONC 30.2 g/dL (32.0-36.0); Mean Corpuscular Hemoglobin 22.7 pg (27.0-31.0); Mean Corpuscular Volume 75.2 fL (78.0-98.0); Mean Platelet Volume 6.9 fL (7.4-10.4); Platelet Count 80 thou/uL (130-400); RBC Distribution Width 17.9 % (11.5-14.5); Red Blood Cell (RBC) Count 3.28 mill/uL (4.20-5.40); White Blood Cell (WBC) Count 3.5 thou/uL (4.8-10.8)
[2022-07-08 20:38] LABS: Anisocytosis SLIGHT = 6-15 cells (100X) (0-5/hpf); Band 1 % (5-11); Eosinophils 1 % (0-10); Hypochromia SLIGHT = 6-15 cells (100X) (0-5/hpf); Lymphocytes 33 % (21-51); MDiff Complete? YES; Microcytosis SLIGHT = 6-15 cells (100X) (0-5/hpf); Monocytes 13 % (0-10); Neutrophil 49 % (42-75); Ovalocytes SLIGHT = 2-5 cells (100X) (0-1/hpf); Platelet Morphology Comment Appears Decreased; Polychromasia SLIGHT = 2-3 cells (100X) (0-2/hpf); Reactive Lymphocytes 2 % (0-10)
[2022-07-08 20:47] LABS: ALT (SGPT) 50 U/L (8-55); AST (SGOT) 75 U/L (5-34); Albumin 2.7 g/dL (3.4-4.8); Alkaline Phosphatase 130 U/L (40-110); Anion Gap 12 mmol/L (10-20); BUN (Urea Nitrogen) 10 mg/dL (9.8-20.1); Bilirubin, Total 0.7 mg/dL (0.2-1.2); Calc. Creatinine Clearance 0 mL/min (70-130); Calcium 8.1 mg/dL (7.8-10.44); Carbon Dioxide 18 mmol/L (23-31); Estimated GFR 94; Globulin 4.8 g/dL (2.4-3.5); Glucose 135 mg/dL (80-115); Potassium 4.3 mmol/L (3.5-5.1); Protein, Total 7.5 g/dL (5.8-8.1)
[2022-07-08 20:49] LABS: Chloride 109 mmol/L (98-107); Sodium 135 mmol/L (136-145)
[2022-07-08] MEDS ORDERED: Pantoprazole 40 MG VIAL ONE (21:33)
[2022-07-08 22:58] LABS: SARS-CoV-2 NAA Rapid Test Not Detected (NotDetected)
== END 2022-07-08 22:58 | disposition home or self-care (01) ==
LOC: ERS 19:57
DX: D64.9 Anemia, unspecified (principal); D69.6 Thrombocytopenia, unspecified; K74.60 Unspecified cirrhosis of liver; J44.9 Chronic obstructive pulmonary disease, unspecified; I10 Essential (primary) hypertension; Z20.822 Contact with and (suspected) exposure to COVID-19; Z87.891 Personal history of nicotine dependence; Z79.899 Other long term (current) drug therapy
CPT/HCPCS: 36415; 71045; 80053; 83605; 84484; 85025; 85610; 85730; 86850; 86900; 86901; 87040; 93005; 96374; C9113